=== PATIENT | female | born 1985 | race Caucasian/White ===

== ENCOUNTER 2016-10-15 11:11 | Emergency (ER) | payer MEDICAID ==
--- NOTE | 2016-10-15 12:17 | EDM.PDOC ---
ED HPI Trauma - General Chief Complaint: Upper Extremity Injury/Pain Stated Complaint: RIGHT SHOULDER PAIN Time Seen by Provider: 10/15/16 11:43 Source: Reports: Patient History Limitations: Reports: No limitations - History of Present Illness INITIAL COMMENTS - FREE TEXT/NARRATIVE: The patient was walking her large pit bull/rotwiller cross dog. The dog saw a cat and went after it and jerked her to the ground. She landed on her right side and hurt her shoulder and neck. She denies any other injuries. Occurred When: this morning Occurred Where: home Method of Injury: fall Severity: severe Pain/Injury Location: Reports: neck, upper extremity, right (shoulder) Consciousness: Reports: no loss of consciousness Associated Symptoms: Reports: no other symptoms Allergies/ADRs: Allergies adhesive Allergy (Verified 10/15/16 11:24) Blisters fish derived Allergy (Verified 10/15/16 11:24) Cannot Remember morphine Allergy (Verified 10/15/16 11:24) Shortness of Breath promethazine HCl [From Phenergan] Allergy (Verified 10/15/16 11:24) Hallucinations Home Medications: Ambulatory Orders Cyanocobalamin (Vitamin B-12) [B-12] 1,000 mcg PO DAILY 12/23/15 [Confirmed ] Cyclobenzaprine [Flexeril] 10 mg PO TID PRN #20 tablet 10/15/16 Hydrocodone/Acetaminophen [Hydrocodon-Acetaminophen 5-325] 1 - 2 each PO Q6HR PRN #20 tablet 10/15/16 Past Medical History HEENT History: Reports: Impaired vision Other HEENT History: Wears glasses Gastrointestinal History: Reports: None Genitourinary History: Reports: Renal calculus 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: Other OB/BYN History: tubal ligation Musculoskeletal History: Reports: Back pain, chronic, Other (see below) Other Musculoskeletal History: Scholiosis Neurological History: Reports: Migraines Other Neuro History: Scoliosis Psychiatric History: Reports: ADHD, Anxiety Hematologic History: Reports: B12 deficiency - Infectious Disease History Infectious Disease History: Reports: Chicken pox, Shingles - Past Surgical History HEENT Surgical History: Reports: Adenoidectomy, Myringotomy w tube(s), Tonsillectomy GI Surgical History: Reports: Cholecystectomy Female Surgical History: Reports: section, Tubal ligation Social & Family History - Family History Family Medical History: Noncontributory - Tobacco Use Smoking Status *Q: Current Every Day Smoker Years of Tobacco use: 11 Packs/Tins Daily: 0 Used Tobacco, but Quit: No Month Tobacco Last Used: jul 2015 Second Hand Smoke Exposure: No - Caffeine Use Caffeine Use: Reports: None - Alcohol Use Days Per Week of Alcohol Use: 0 - Recreational Drug Use Recreational Drug Use: No - Living Situation & Occupation Living situation: Reports: , with significant other (Boyfriend), with family (3 kids) 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[employer]) Review of Systems - Review of Systems Review Of Systems: See Below Constitutional: Reports: no symptoms Ears: Reports: no symptoms Nose: Reports: no symptoms Mouth/Throat: Reports: no symptoms Respiratory: Reports: No Symptoms Cardiovascular: Reports: no symptoms GI/Abdominal: Reports: No symptoms Musculoskeletal: Reports: neck pain, shoulder pain Trauma Exam - Physical Exam Exam: See Below Exam Limited By: No limitations General Appearance: Reports: alert, no apparent distress Head: Reports: atraumatic, normocephalic Ears: Reports: normal external exam Nose: Reports: normal inspection Throat/Mouth: Reports: Normal inspection Neck: Reports: other (Pain upon palpation to the right neck) Respiratory Exam: Reports: no respiratory distress, lungs clear, normal breath sounds Cardiovascular: Reports: regular rate, rhythm, no edema, no murmur GI/Abdominal: Reports: soft, non tender, no organomegaly Back: Reports: normal inspection Extremities: Reports: other (Pain upon palpation to the right lateral shoulder with good sensatin and pulses distally) Course - Vital Signs Last Recorded V/S: Last Vital Signs Temp Pulse 88 10/15/16 11:18 Resp 20 10/15/16 11:18 BP 129/83 10/15/16 11:18 Pulse Ox 98 10/15/16 11:18 - Orders/Labs/Meds Orders: Active Orders 24 hr Category Date Time Status Cervical Spine 2V or 3V [CR] Stat Exams 10/15/16 11:49 Taken Shoulder Comp Rt [CR] Stat Exams 10/15/16 11:48 Taken - Re-Assessments/Exams Free Text/Narrative Re-Assessment/Exam: 10/15/16 12:16 The x-ray of her cervical spine and shoulder look good. I will get her on a muscle relaxer and something stronger for pain. Departure - Departure Time of Disposition: 12:20 Disposition: Home, Self-Care 01 Condition: good Clinical Impression: Fall Qualifiers: Encounter type: initial encounter Qualified Code(s): W19.XXXA - Unspecified fall, initial encounter Cervical strain Qualifiers: Encounter type: initial encounter Qualified Code(s): S16.1XXA - Strain of muscle, fascia and tendon at neck level, initial encounter Shoulder contusion Qualifiers: Encounter type: initial encounter Laterality: right Qualified Code(s): S40.011A - Contusion of right shoulder, initial encounter Prescriptions: Hydrocodone/Acetaminophen [Hydrocodon-Acetaminophen 5-325] 1 - 2 each PO Q6HR PRN #20 tablet PRN Reason: Pain Cyclobenzaprine [Flexeril] 10 mg PO TID PRN #20 tablet PRN Reason: Pain Referrals: Neetu Flores, DATABASE SOFTWARE TECHNICIAN [Primary Care Provider] - 1 Week Forms: ED Department Discharge Additional Instructions: Ice your neck and shoulder for 15 minutes every other hour while awake for 2 days. Do not lift anything heavy for a few days. Please return if you are worse. - My Orders Last 24 Hours: My Active Orders 10/15/16 11:48 Shoulder Comp Rt [CR] Stat 10/15/16 11:49 Cervical Spine 2V or 3V [CR] Stat - Assessment/Plan Last 24 Hours: My Active Orders 10/15/16 11:48 Shoulder Comp Rt [CR] Stat 10/15/16 11:49 Cervical Spine 2V or 3V [CR] Stat
[2016-10-15 13:00] VITALS: BP 106/82
--- NOTE | 2016-10-16 07:26 | CR ---
Cervical spine: AP, lateral, odontoid and swimmer's views of the cervical spine were obtained. Comparison: No previous cervical imaging. Scoliosis is present. Vertebral body heights and disc spaces appear maintained. No discrete fracture or subluxation is appreciated. Impression: 1. Scoliosis. Nothing acute is appreciated on four-view cervical spine exam. Diagnostic code #2
--- NOTE | 2016-10-16 10:02 | CR ---
Right shoulder: Four views of the right shoulder were obtained. Comparison: No previous study. Glenohumeral joint and acromioclavicular joint are unremarkable. Scoliosis is noted within the spine. No acute fracture or other abnormality is seen. Impression: 1. Scoliosis within the spine. Right shoulder study is otherwise unremarkable. Diagnostic code #2
== END 2016-10-15 12:55 | disposition home or self-care (01) ==
LOC: JD.ED 11:11
DX: S16.1XXA Strain of muscle, fascia and tendon at neck level, initial encounter (principal); S40.011A Contusion of right shoulder, initial encounter; W19.XXXA Unspecified fall, initial encounter; Z88.8 Allergy status to other drugs, medicaments and biological substances; Z88.6 Allergy status to analgesic agent; Z91.048 Other nonmedicinal substance allergy status; F17.200 Nicotine dependence, unspecified, uncomplicated
CPT/HCPCS: 72040; 72040-26; 73030-26-RT; 73030-RT; 99283

== ENCOUNTER 2017-02-04 12:57 | Emergency (ER) | payer MEDICAID ==
--- NOTE | 2017-02-04 14:27 | EDM.PDOC ---
ED HPI GENERAL MEDICAL PROBLEM - General Chief Complaint: Lower Extremity Injury/Pain Stated Complaint: RIGHT HIP PAIN Time Seen by Provider: 02/04/17 14:14 Source of Information: Reports: Patient History Limitations: Reports: No Limitations - History of Present Illness INITIAL COMMENTS - FREE TEXT/NARRATIVE: Patient is a 31-year-old female who presents to the ED complaining of right lower back pain. This started approximately one week ago and has progressively gotten worse over the course of the week. States the pain is increased with palpation, standing straight up, and laying flat. She has been forced to sleep in a recliner due to the pain. She notes she's been on her feet more recently while at work. 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 She discontinued wearing these with no relief with current symptoms. 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 She has no history of recent trauma. She has tried ice packs, ibuprofen, and heating pads with minimal relief. She has no prior injury to the affected area. Pain does radiate up the right side of her back with lifting a tray, standing straight up, and laying flat. States there is some muscle tension present. She does have a history kidney stones to which she states symptomatology currently is way different than previous kidney stone episodes. She has no pain with urination or hematuria present. There is no fever/chills, nausea/vomiting, chest pain, shortness of breath, abdominal pain, incontinence to urine or stool, saddle anesthesia, or any additional complaints. Treatments LIBRARY PAGE: Reports: Cold Therapy, NSAIDS Right Hip Pain Score (Numeric/FACES): 6 - Related Data Allergies Allergy/AdvReac Type Severity Reaction Status Date / Time adhesive Allergy Blisters Verified 02/04/17 13:26 fish derived Allergy Cannot Verified 02/04/17 13:26 Remember morphine Allergy Shortness Verified 02/04/17 13:26 of Breath Home Meds: Home Meds Cyanocobalamin (Vitamin B-12) [B-12] 1,000 mcg PO DAILY 12/23/15 [History] Orphenadrine [Norflex] 100 mg PO BID PRN #10 tab.er 02/04/17 [Rx] Past Medical History HEENT History: Reports: Impaired Vision Other HEENT History: wears eyeglasses Gastrointestinal History: Reports: GERD, Other (See Below) Other Gastrointestinal History: during . 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 Neurological History: Reports: Migraines Other Neuro History: Scoliosis--causes migraines, chronic neck pain. Psychiatric History: Reports: ADHD, Anxiety Hematologic History: Reports: B12 Deficiency - Infectious Disease History Infectious Disease History: Reports: Chicken Pox, Shingles - Past Surgical History HEENT Surgical History: Reports: Adenoidectomy, Myringotomy w Tube(s), Tonsillectomy GI Surgical History: Reports: Cholecystectomy Female Surgical History: Reports: Section, Tubal Ligation Social & Family History - Family History Family Medical History: Noncontributory - Tobacco Use Smoking Status *Q: Current Some Day Smoker Years of Tobacco use: 10 Packs/Tins Daily: 0.5 Used Tobacco, but Quit: No Month Tobacco Last Used: jul 2015 Second Hand Smoke Exposure: No - Caffeine Use Caffeine Use: Reports: None - Alcohol Use Days Per Week of Alcohol Use: 0 - Recreational Drug Use Recreational Drug Use: No - Living Situation & Occupation Living situation: Reports: , with Significant Other, with Family Occupation: Student Review of Systems - Review of Systems Review Of Systems: ROS reveals no pertinent complaints other than HPI. ED EXAM, GENERAL - Physical Exam Exam: See Below Exam Limited By: No Limitations General Appearance: Alert, WD/WN, No Apparent Distress Ears: Hearing Grossly Normal Nose: Normal Inspection Throat/Mouth: Normal Voice, No Airway Compromise Neck: Normal Inspection, Supple Respiratory/Chest: No Respiratory Distress, Lungs Clear, Normal Breath Sounds, No Accessory Muscle Use Cardiovascular: Normal Peripheral Pulses, Regular Rate, Rhythm, No Murmur Peripheral Pulses: 2+: Radial (L) GI/Abdominal: Normal Bowel Sounds, Soft, Non-Tender, No Organomegaly, No Distention Back Exam: Normal Inspection, Decreased Range of Motion, Other (Pain with palpation of the right lower back and SI joint. No muscle spasms present. Pain is localized with no radiation. Decreased range of motion noted secondary to pain. No sensory/motor deficits noted distally.). No: Paraspinal Tenderness, Vertebral Tenderness Extremities: Normal Inspection, Normal Range of Motion, Non-Tender, No Pedal Edema, Normal Capillary Refill Neurological: Alert, Oriented, CN II-XII Intact, Normal Cognition, No Motor/ Sensory Deficits Psychiatric: Normal Affect, Normal Mood Skin Exam: Warm, Dry, Intact, Normal Color Course - Vital Signs Last Recorded V/S: Last Vital Signs Temp 98.3 F 02/04/17 13:25 Pulse 102 H 02/04/17 13:25 Resp 16 02/04/17 13:25 BP 125/79 02/04/17 13:25 Pulse Ox 99 02/04/17 13:25 - Re-Assessments/Exams Free Text/Narrative Re-Assessment/Exam: It appears on physical examination this is more muscle skeletal in nature. 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 Pain is reproducible with palpation. It is involving the SI joint, lower back, and upper back depending on the movements. She has a history of kidney stones in the past to which current symptoms are way different than previous episodes. Treatment at this point will be symptomatic treatment including: Refrain from any activities that cause worsening pain, ibuprofen and Tylenol in alternating fashion for pain. Norflex for muscle relaxation. Ice and heat in alternating fashion. Follow-up with primary care provider as needed. Discharge instructions as documented. Departure - Departure Time of Disposition: 14:27 Disposition: Home, Self-Care 01 Condition: Good Clinical Impression: Sacroiliac joint pain Lower back pain Qualifiers: Chronicity: acute Back pain laterality: right Sciatica presence: without sciatica Qualified Code(s): M54.5 - Low back pain - Discharge Information Prescriptions: Orphenadrine [Norflex] 100 mg PO BID PRN #10 tab.er PRN Reason: Pain Instructions: Sacroiliac Joint Dysfunction, Back Pain, Adult, [id number] Referrals: Neetu Flores SALES RECRUITMENT SPECIALIST [Primary Care Provider] - Forms: ED Department Discharge Additional Instructions: Refrain from any activities that cause worsening pain. Take ibuprofen and Tylenol in alternating fashion for pain. Utilize ice and warm compresses and alternate fashion with gentle massage. Take the Norflex as prescribed. No driving while taking this medication. Follow-up with your primary care provider in 3-5 days for reevaluation and treatment. Return to ED as needed for any new or worsening symptoms.
== END 2017-02-04 15:00 | disposition home or self-care (01) ==
LOC: JD.ED 12:57
CPT/HCPCS: 99283

== ENCOUNTER 2017-02-18 19:15 | Emergency (ER) | payer MEDICAID ==
[2017-02-18 19:24] VITALS: BP 122/75
[2017-02-18] MEDS ORDERED: Ondansetron 4 MG/2 ML SDV IVPUSH ONE (19:32)
[2017-02-18] MEDS ORDERED: diphenhydrAMINE 50 MG/ML SDV IVPUSH ONE (19:32)
[2017-02-18] MEDS ORDERED: Lactated Ringers 1,000 ML IV ONE (19:32)
--- NOTE | 2017-02-18 19:32 | EDM.PDOC ---
ED HPI GENERAL MEDICAL PROBLEM - General Chief Complaint: Headache Stated Complaint: MIGRANE Time Seen by Provider: 02/18/17 19:24 - History of Present Illness INITIAL COMMENTS - FREE TEXT/NARRATIVE: 31-year-old female presents emergency room with a headache. This headache started early today has progressively gotten worse. Patient has frequent headaches not often this bad to get this bad to her 3 times a month. She was not able to control this with Motrin. Her last dose of Motrin was around noon today. Patient has muscle tension headaches as well and her worse headaches or when the muscle tension headaches bindup with the migraines according to the patient. Patient denies any fevers or chills she has some photophobia but no eye pain her neck pain is a chronic problem. This is a typical headache for her Headache Pain Score (Numeric/FACES): 9 - Related Data Allergies Allergy/AdvReac Type Severity Reaction Status Date / Time adhesive Allergy Blisters Verified 02/18/17 19:24 fish derived Allergy Cannot Verified 02/18/17 19:24 Remember morphine Allergy Shortness Verified 02/18/17 19:24 of Breath Home Meds: Home Meds Cyanocobalamin (Vitamin B-12) [B-12] 1,000 mcg PO DAILY 12/23/15 [History] Cyclobenzaprine [Flexeril] 10 mg PO DAILY PRN 02/18/17 [History] Past Medical History HEENT History: Reports: Impaired Vision Other HEENT History: wears eyeglasses Gastrointestinal History: Reports: GERD, Other (See Below) Other Gastrointestinal History: during . 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 Neurological History: Reports: Migraines Other Neuro History: Scoliosis--causes migraines, chronic neck pain. Psychiatric History: Reports: ADHD, Anxiety Hematologic History: Reports: B12 Deficiency - Infectious Disease History Infectious Disease History: Reports: Chicken Pox, Shingles - Past Surgical History HEENT Surgical History: Reports: Adenoidectomy, Myringotomy w Tube(s), Tonsillectomy GI Surgical History: Reports: Cholecystectomy Female Surgical History: Reports: Section, Tubal Ligation Social & Family History - Family History Family Medical History: Noncontributory - Tobacco Use Smoking Status *Q: Current Some Day Smoker Years of Tobacco use: 10 Packs/Tins Daily: 0.5 Used Tobacco, but Quit: No Month Tobacco Last Used: jul 2015 Second Hand Smoke Exposure: No - Caffeine Use Caffeine Use: Reports: None - Alcohol Use Days Per Week of Alcohol Use: 0 - Recreational Drug Use Recreational Drug Use: No - Living Situation & Occupation Living situation: Reports: , with Significant Other, with Family Occupation: Student ED ROS GENERAL - Review of Systems Review Of Systems: See Below Constitutional: Reports: No Symptoms. Denies: Fever, Chills HEENT: Reports: Other (Photophobia). Denies: Dental Pain, Ear Pain, Eye Pain, Nosebleed, Throat Pain, Vertigo, Vision Change Respiratory: Reports: No Symptoms Cardiovascular: Reports: No Symptoms Endocrine: Reports: No Symptoms : Reports: No Symptoms, Other (She has had a tubal ligation and has an IUD in place) Skin: Reports: No Symptoms Neurological: Reports: Headache. Denies: Confusion, Dizziness, Numbness, Pre- Existing Deficit, Trouble Speaking, Difficulty Walking Psychiatric: Reports: No Symptoms - Physical Exam Exam: See Below Exam Limited By: No Limitations General Appearance: Alert, No Apparent Distress Eye Exam: Bilateral Eye: EOMI, Normal Inspection, PERRL Ears: Normal External Exam, Normal Canal, Hearing Grossly Normal, Normal TMs Nose: Normal Inspection, Normal Mucosa, No Blood Throat/Mouth: Normal Inspection, Normal Lips, Normal Teeth, Normal Gums, Normal Oropharynx, Normal Voice, No Airway Compromise Head Exam: Atraumatic, Normocephalic Neck: Normal Inspection, Supple, Non-Tender, Full Range of Motion. No: Lymphadenopathy (L), Lymphadenopathy (R) Respiratory/Chest: No Respiratory Distress, Lungs Clear, Normal Breath Sounds Cardiovascular: Regular Rate, Rhythm, No Edema, No Murmur Neuro Exam (Abbreviated): Other (Cranial nerves II through XII all muscle groups in upper and lower extremities recall appropriate bilaterally deep tendon reflexes are equal and appropriate at the brachial radialis. Cerebellar testing is entirely within normal limits) Course - Vital Signs Last Recorded V/S: Last Vital Signs Temp 36.8 C 02/18/17 19:21 Pulse 94 02/18/17 19:21 Resp 19 02/18/17 19:21 BP 122/75 02/18/17 19:21 Pulse Ox 98 02/18/17 19:21 - Orders/Labs/Meds Meds: Medications Discontinued Medications Generic Name Dose Route Start Last Admin Trade Name Mariann PRN Reason Stop Dose Admin Diphenhydramine HCl 50 mg 02/18/17 19:32 02/18/17 19:42 Benadryl IVPUSH 02/18/17 19:33 50 mg ONETIME ONE Administration Haloperidol Lactate 2.5 mg 02/18/17 20:28 02/18/17 20:33 Haldol IVPUSH 02/18/17 20:29 2.5 mg ONETIME ONE Administration Lactated Ringer's 1,000 mls @ 999 mls/hr 02/18/17 19:32 02/18/17 19:41 Ringers, Lactated IV 02/18/17 20:32 999 mls/hr .BOLUS ONE Administration Ketorolac Tromethamine 15 mg 02/18/17 19:35 02/18/17 19:42 Toradol IVPUSH 02/18/17 19:36 15 mg ONETIME ONE Administration Ondansetron HCl 4 mg 02/18/17 19:32 02/18/17 19:41 Zofran IVPUSH 02/18/17 19:33 4 mg ONETIME ONE Administration - Re-Assessments/Exams Free Text/Narrative Re-Assessment/Exam: 02/18/17 19:45 Patient has a normal neurologic examination we'll proceed with a liter of LR Zofran 4 mg Benadryl 50 mg and Toradol 15 mg 02/18/17 21:24 Patient was initially treated with IV fluids Benadryl Zofran her pain was down to about a 6 with this this was followed up at 2.5 mg of Haldol her pain is down less than a 3 she would like to go home and get some rest Departure - Departure Time of Disposition: 21:24 Disposition: Home, Self-Care 01 Clinical Impression: Tension-type headache, Migraine - Discharge Information Forms: ED Department Discharge Additional Instructions: Return to the emergency room with any questions problems worsening symptoms. Discharged home and get some rest. Do not eat anything have just mostly liquids if needed then go to bed. Follow-up with your regular physician as needed
[2017-02-18] MEDS ORDERED: Ketorolac 15 MG/ML SDV IVPUSH ONE (19:35)
[2017-02-18] MEDS ORDERED: Haloperidol Lactate 5 MG/ML SDV IVPUSH ONE (20:28)
== END 2017-02-18 21:44 | disposition home or self-care (01) ==
LOC: JD.ED 19:15
DX: G44.209 Tension-type headache, unspecified, not intractable (principal); G43.909 Migraine, unspecified, not intractable, without status migrainosus; K21.9 Gastro-esophageal reflux disease without esophagitis; F41.9 Anxiety disorder, unspecified; F17.210 Nicotine dependence, cigarettes, uncomplicated; Z98.51 Tubal ligation status; Z90.49 Acquired absence of other specified parts of digestive tract; Z98.890 Other specified postprocedural states; Z96.22 Myringotomy tube(s) status; Z87.440 Personal history of urinary (tract) infections; Z87.442 Personal history of urinary calculi; Z79.899 Other long term (current) drug therapy; Z88.5 Allergy status to narcotic agent; Z91.013 Allergy to seafood
CPT/HCPCS: 96361; 96374; 96375; 99284; J1200; J1630; J1885; J2405; J7120

== ENCOUNTER 2017-06-13 19:05 | Emergency (ER) | payer MEDICAID, OTHER ==
[2017-06-13 19:21] VITALS: BP 111/74
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
--- NOTE | 2017-06-16 16:01 | CR ---
Right elbow: Four views of the right elbow were obtained. Comparison: No prior elbow exam. Small supracondylar process is again identified. Joint spaces within the elbow are maintained. No joint effusion is seen. No fracture or other bony abnormality is identified. Impression: 1. Small supracondylar process. 2. Right elbow study is otherwise unremarkable. Diagnostic code #2
--- NOTE | 2017-06-16 16:01 | CR ---
Right forearm: Two views of the right forearm were obtained. Comparison: No prior study. Soft tissue swelling is identified. No fracture or other bony abnormality is seen. Impression: 1. Soft tissue swelling. No acute bony abnormality is seen. Diagnostic code #2
--- NOTE | 2017-06-16 16:01 | CR ---
Right humerus: Two views of the right humerus were obtained. Comparison: Prior right shoulder study partially showing the humerus dated 10/15/16. No fracture or other bony abnormality is seen. Incidental note of small supracondylar process. Impression: 1. Incidental finding. Nothing acute is seen on two-view right humerus exam. Diagnostic code #2
== END 2017-06-13 21:50 | disposition home or self-care (01) ==
LOC: JD.ED 19:05
DX: S50.12XA Contusion of left forearm, initial encounter (principal); S59.902A Unspecified injury of left elbow, initial encounter; F17.210 Nicotine dependence, cigarettes, uncomplicated; V89.2XXA Person injured in unspecified motor-vehicle accident, traffic, initial encounter
CPT/HCPCS: 73060-26-RT; 73060-RT; 73080-26-RT; 73080-RT; 73090-26-RT; 73090-RT; 99283; 99284

== ENCOUNTER 2019-03-11 11:00 | Emergency (ER) | payer SELFPAY ==
[2019-03-11 11:09] VITALS: BP 133/83
[2019-03-11] MEDS ORDERED: Lidocaine 1% 10 ML MDV INJECT ONE (11:44)
--- NOTE | 2019-03-11 13:59 | EDM.PDOC ---
ED HPI GENERAL MEDICAL PROBLEM - General Chief Complaint: Laceration Stated Complaint: LEFT HAND LAC Time Seen by Provider: 03/11/19 11:07 Source of Information: Reports: Patient History Limitations: Reports: No Limitations - History of Present Illness INITIAL COMMENTS - FREE TEXT/NARRATIVE: The patient presents with a left finger lacerations. She was cutting up some onions and she cut her left middle finger. She is right handed and her tetanus is up to date. Onset: Today Duration: Minutes: Location: Reports: Upper Extremity, Left (middle finger) Quality: Reports: Sharp Severity: Mild Left Finger-Middle Pain Score (Numeric/FACES): 10 - Related Data Allergies Allergy/AdvReac Type Severity Reaction Status Date / Time adhesive Allergy Blisters Verified 03/11/19 11:08 fish derived Allergy Cannot Verified 03/11/19 11:08 Remember morphine Allergy Shortness Verified 03/11/19 11:08 of Breath Home Meds: Home Meds Cyanocobalamin (Vitamin B-12) [B-12] 1,000 mcg PO DAILY 12/23/15 [History] Past Medical History HEENT History: Reports: Impaired Vision Other HEENT History: wears eyeglasses Gastrointestinal History: Reports: GERD, Other (See Below) Other Gastrointestinal History: during . 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 Neurological History: Reports: Migraines Other Neuro History: Scoliosis--causes migraines, chronic neck pain. Psychiatric History: Reports: ADHD, Anxiety Hematologic History: Reports: B12 Deficiency - Infectious Disease History Infectious Disease History: Reports: Chicken Pox, Shingles - Past Surgical History HEENT Surgical History: Reports: Adenoidectomy, Myringotomy w Tube(s), Tonsillectomy GI Surgical History: Reports: Cholecystectomy Female Surgical History: Reports: Section, Tubal Ligation Social & Family History - Family History Family Medical History: Noncontributory - Tobacco Use Smoking Status *Q: Current Every Day Smoker Years of Tobacco use: 10 Packs/Tins Daily: 0.5 - Caffeine Use Caffeine Use: Reports: Soda - Recreational Drug Use Recreational Drug Use: No - Living Situation & Occupation Living situation: Reports: , with Significant Other, with Family Occupation: Student ED ROS GENERAL - Review of Systems Review Of Systems: See Below Constitutional: Reports: No Symptoms HEENT: Reports: No Symptoms Respiratory: Reports: No Symptoms Cardiovascular: Reports: No Symptoms Endocrine: Reports: No Symptoms GI/Abdominal: Reports: No Symptoms : Reports: No Symptoms Musculoskeletal: Reports: Other (Laceration to the left middle finger) ED EXAM, SKIN/RASH Exam: See Below Exam Limited By: No Limitations General Appearance: Alert, No Apparent Distress Ears: Normal External Exam Nose: Normal Inspection Head: Atraumatic, Normocephalic Neck: Normal Inspection Respiratory/Chest: No Respiratory Distress Extremities: Other (0.5cm laceration to the left middle finger with good sensation and movement) ED SKIN PROCEDURES - Laceration/Wound Repair Left Digit - 3rd (Middle) Appearance: Subcutaneous, Other (Through the nail) Distal NVT: Neuro & Vascular Intact, No Tendon Injury Anesthetic Type: Digital Local Anesthesia - Lidocaine (Xylocaine): 1% Plain Skin Prep: Saline Exploration/Debridement/Repair: Wound Explored, In a Bloodless Field, Explored to Base Closed with: Sutures Lac/Wound length In cm: 0.5 Suture Size: 4-0 # of Sutures: 1 Suture Type: Nylon, Interrupted, Simple Tetanus Status Addressed: Yes Complications: No Course - Vital Signs Last Recorded V/S: Last Vital Signs Temp 97.8 F 03/11/19 11:06 Pulse 94 03/11/19 11:06 Resp 18 03/11/19 11:06 BP 133/83 03/11/19 11:06 Pulse Ox 98 03/11/19 11:06 - Orders/Labs/Meds Meds: Medications Discontinued Medications Generic Name Dose Route Start Last Admin Trade Name Mariann PRN Reason Stop Dose Admin Lidocaine HCl 10 ml 03/11/19 11:44 03/11/19 12:44 Xylocaine 1% INJECT 03/11/19 11:45 10 ml ONETIME ONE Administration - Re-Assessments/Exams Free Text/Narrative Re-Assessment/Exam: 03/11/19 14:04 I sutured the wound. Departure - Departure Time of Disposition: 14:05 Disposition: Home, Self-Care 01 Condition: Good Clinical Impression: Laceration of left index finger Qualifiers: Encounter type: initial encounter Damage to nail status: without damage Foreign body presence: without foreign body Qualified Code(s): S61.211A - Laceration without foreign body of left index finger without damage to nail, initial encounter - Discharge Information *PRESCRIPTION DRUG MONITORING PROGRAM REVIEWED*: No *COPY OF PRESCRIPTION DRUG MONITORING REPORT IN PATIENT VITALY: No Instructions: Laceration Care, Adult Referrals: Cristofer Dunn MD [Primary Care Provider] - 1 Week Forms: ED Department Discharge Additional Instructions: Soak your finger in warm soapy water 2 times per day and apply antibiotics after. Have the sutures removed in 1 week. Please return if you have any signs of infection such as redness, swelling, pain or drainage. You may need oral antibiotics at that time.
== END 2019-03-11 14:15 | disposition home or self-care (01) ==
LOC: JD.ED 11:00
DX: S61.213A Laceration without foreign body of left middle finger without damage to nail, initial encounter (principal); F17.210 Nicotine dependence, cigarettes, uncomplicated; Z88.5 Allergy status to narcotic agent; Z91.013 Allergy to seafood; W26.8XXA Contact with other sharp object(s), not elsewhere classified, initial encounter
CPT/HCPCS: 12001; 99282; J2001

== ENCOUNTER 2019-03-20 17:23 | Emergency (ER) | payer SELFPAY | END 2019-03-20 17:50 | LOC: JD.ED 17:23 | DX: S61.211D Laceration without foreign body of left index finger without damage to nail, subsequent encounter (principal); W26.9XXD Contact with unspecified sharp object(s), subsequent encounter ==

== ENCOUNTER 2019-12-08 17:55 | Emergency (ER) | payer MEDICAID, OTHER ==
[2019-12-08 18:39] VITALS: BP 115/67; PULSE 91
[2019-12-08] MEDS ORDERED: HYDROmorphone 0.5 MG/0.5 ML Syringe IVPUSH ONE (19:08)
[2019-12-08] MEDS ORDERED: Metoclopramide 10 MG/2 ML SDV IVPUSH ONE (19:08)
--- NOTE | 2019-12-08 19:13 | EDM.PDOC ---
ED HPI GENERAL MEDICAL PROBLEM - General Chief Complaint: Genitourinary Problem Stated Complaint: ABD AND BACK PAIN Time Seen by Provider: 12/08/19 19:03 Source of Information: Reports: Patient History Limitations: Reports: No Limitations - History of Present Illness INITIAL COMMENTS - FREE TEXT/NARRATIVE: 34-year-old female presents to the ED with acute onset of left flank pain last evening bench then seemed to clear up after a few hours. Pain was present most of today but became much more severe around 1400 hrs. today and started to move into the left upper abdomen. Associated constant feeling of need to void. No diarrhea. Associated nausea without vomiting. She has not seen any blood in her urine. Patient does not have menstrual cycles as she has an IUD in place. She is also had previous tubal ligation. She has a past history of kidney stones. Her father also has stones. Last kidney stone for her was about a year and a half ago. Pain is rated as 6-7 out of 10 Onset: Sudden Onset Date: 12/07/19 Onset Time: 21:30 Duration: Hour(s):, Constant, Getting Worse Location: Reports: Back, Radiates to (Left flank pain radiating to the left upper abdomen. Left upper abdomen) Quality: Reports: Ache, Throbbing Severity: Moderate (6710) Worsens with: Reports: None Context: Reports: Other (Continuous occurrence). 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: Acetaminophen, NSAIDS (Motrin with no relief) Left Abdomen Pain Score (Numeric/FACES): 5 - Related Data Allergies Allergy/AdvReac Type Severity Reaction Status Date / Time adhesive Allergy Severe Blisters Verified 12/08/19 18:36 fish derived Allergy Severe Cannot Verified 12/08/19 18:36 Remember morphine Allergy Severe Shortness Verified 12/08/19 18:36 of Breath Home Meds: Home Meds Cyanocobalamin (Vitamin B-12) [B-12] 1,000 mcg PO DAILY 12/23/15 [History] Ondansetron [Zofran] 4 mg BUCCAL Q6H PRN #6 tab 12/08/19 [Rx] oxyCODONE HCl/Acetaminophen [Percocet 5-325 mg Tablet] 1 - 2 each PO Q4H PRN # 12 tablet 12/08/19 [Rx] Past Medical History HEENT History: Reports: Impaired Vision Other HEENT History: wears eyeglasses Gastrointestinal History: Reports: GERD, Other (See Below) Other Gastrointestinal History: during . 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 Neurological History: Reports: Migraines Other Neuro History: Scoliosis--causes migraines, chronic neck pain. Psychiatric History: Reports: ADHD, Anxiety Hematologic History: Reports: B12 Deficiency - Infectious Disease History Infectious Disease History: Reports: Chicken Pox, Shingles - Past Surgical History HEENT Surgical History: Reports: Adenoidectomy, Myringotomy w Tube(s), Tonsillectomy GI Surgical History: Reports: Cholecystectomy (Laparoscopic) Female Surgical History: Reports: Section, Tubal Ligation Social & Family History - Family History Family Medical History: Noncontributory - Tobacco Use Years of Tobacco use: 13 Packs/Tins Daily: 0.5 - Caffeine Use Caffeine Use: Reports: Soda - Recreational Drug Use Recreational Drug Use: No - Living Situation & Occupation Living situation: Reports: , with Significant Other, with Family Occupation: Student ED ROS GENERAL - Review of Systems Review Of Systems: See Below Constitutional: Reports: Decreased Appetite. Denies: Fever, Chills, Malaise, Weakness, Fatigue, Weight Loss HEENT: Reports: No Symptoms Respiratory: Reports: No Symptoms Cardiovascular: Reports: No Symptoms Endocrine: Reports: No Symptoms GI/Abdominal: Reports: Abdominal Pain, Decreased Appetite (Left upper mid abdominal pain rating slightly down towards the left groin.), Nausea. Denies: Vomiting : Reports: Frequency, Other (No obvious hematuria) Musculoskeletal: Reports: Back Pain Neurological: Reports: No Symptoms (Left flank and low back pain) Psychiatric: Reports: No Symptoms Hematologic/Lymphatic: Reports: No Symptoms Immunologic: Reports: No Symptoms ED EXAM, RENAL/ - Physical Exam Exam: See Below Exam Limited By: No Limitations General Appearance: Alert, WD/WN, Mild Distress, Other (Temperature is 36.4 pulse is 91 and sinus respiratory 16 with O2 sats of 99%. BP 115/67) Eye Exam: Bilateral Eye: Normal Inspection (No blepharal pallor or scleral icterus.), PERRL Throat/Mouth: Normal Inspection, Normal Lips, Normal Oropharynx Head: Atraumatic, Normocephalic Neck: Normal Inspection, Supple, Non-Tender, Full Range of Motion. No: Lymphadenopathy (L), Lymphadenopathy (R) Respiratory/Chest: No Respiratory Distress, Lungs Clear, Normal Breath Sounds, No Accessory Muscle Use Cardiovascular: Normal Peripheral Pulses, Regular Rate, Rhythm, No Edema, No Gallop, No Murmur, No Rub GI/Abdominal: Soft (Bowel sounds are fairly hyperactive in all 4 quadrants.), Non-Tender, No Organomegaly, No Abnormal Bruit, No Mass, Pelvis Stable, Abnormal Bowel Sounds. No: Guarding, Rigid, Rebound Back Exam: CVA Tenderness (L). No: CVA Tenderness (R) (Mild left CVA tenderness ) Extremities: Normal Inspection, Normal Range of Motion, Non-Tender, No Pedal Edema Neurological: Alert, Oriented, CN II-XII Intact, Normal Cognition Psychiatric: Normal Affect, Normal Mood Skin Exam: Warm, Dry, Intact, Normal Color, No Rash Course - Vital Signs Last Recorded V/S: Last Vital Signs Temp 36.4 C 12/08/19 18:36 Pulse 91 12/08/19 18:36 Resp 16 12/08/19 18:36 BP 115/67 12/08/19 18:36 Pulse Ox 99 12/08/19 18:36 - Orders/Labs/Meds Orders: Active Orders 24 hr Category Date Time Status Ketorolac [Toradol] Med 12/08/19 19:15 Active 30 mg IVPUSH ONETIME Sodium Chloride 0.9% [Normal Saline] 1,000 ml Med 12/08/19 19:15 Active IV ASDIRECTED Medication Orders Sodium Chloride (Normal Saline) 1,000 mls @ 150 mls/hr IV ASDIRECTED JES Last Admin: 12/08/19 19:33 Dose: 150 mls/hr Ketorolac Tromethamine (Toradol) 30 mg IVPUSH ONETIME JES Last Admin: 12/08/19 19:35 Dose: 30 mg Labs: Laboratory Tests 12/08/19 Range/Units 18:43 Urine Color Yellow (Yellow) Urine Appearance Clear (Clear) Urine pH 7.0 (5.0-8.0) Ur Specific [place] 1.025 (1.005-1.030) Urine Protein Negative (Negative) Urine Glucose (UA) Negative (Negative) Urine Ketones Trace H (Negative) Urine Occult Blood 2+ H (Negative) Urine Nitrite Negative (Negative) Urine Bilirubin Negative (Negative) Urine Urobilinogen 0.2 (0.2-1.0) Ur Leukocyte Esterase Negative (Negative) Urine RBC 30-40 H (0-5) /hpf Urine WBC 0-5 (0-5) /hpf Ur Squamous Epith Cells 5-10 H (0-5) /hpf Urine Bacteria Rare (FEW) /hpf Urine Mucus Not seen (FEW) /hpf Meds: Medications Generic Name Dose Route Start Last Admin Trade Name Freq PRN Reason Stop Dose Admin Sodium Chloride 1,000 mls @ 150 mls/hr 12/08/19 19:15 12/08/19 19:33 Normal Saline IV 150 mls/hr ASDIRECTED JES Administration Ketorolac Tromethamine 30 mg 12/08/19 19:15 12/08/19 19:35 Toradol IVPUSH 30 mg ONETIME JES Administration Discontinued Medications Generic Name Dose Route Start Last Admin Trade Name Freq PRN Reason Stop Dose Admin Hydromorphone HCl 0.5 mg 12/08/19 19:08 12/08/19 19:34 Dilaudid IVPUSH 12/08/19 19:09 0.5 mg ONETIME ONE Administration Metoclopramide HCl 7.5 mg 12/08/19 19:08 12/08/19 19:33 Reglan IVPUSH 12/08/19 19:09 7.5 mg ONETIME ONE Administration - Radiology Interpretation Free Text/Narrative:: 34-year-old female presents to the ED with initially intermittent left flank pain starting last evening which progressed to constant severe pain about 1400 hrs. this afternoon. Associated nausea and constant feeling of need to void. She has a past history of kidney stones with the last stone attack being about a year and a half ago. Urinalysis done by the triage nurse shows 2+ hematuria and 30-40 RBCs per high-power field with no evidence of pyuria. Current pain is 6-7 out of 10. Plan IV normal saline at 150 mils per hour. Given Dilaudid 0.5 mg IV with Reglan 7.5 mg IV and Toradol 30 mg IV for acute pain and nausea relief. CT of the abdomen/pelvis to be performed per renal protocol - Re-Assessments/Exams Free Text/Narrative Re-Assessment/Exam: 12/08/19 20:24 CT of the abdomen and pelvis carried out per renal protocol. Lung bases are clear. She does have a small hiatal hernia. Cardiac silhouette is within normal limits. Liver is here homogeneous without any intraductal dilatation. Gallbladder is absent with matt present in the gallbladder fossa. Pancreas appears to be normal. Both kidneys appear to be within normal limits. The left ureter is mildly dilated and there is a 1 mm stone obstructing the distal one third of the ureter minimally. A 2 mm stone in the upper right kidney. D present in the uterus. Appendix is seen and is normal. No free fluid in the pelvis. No other abnormalities were appreciated on CT exam. 12/08/19 20:43 next discussed with the patient. She has good pain relief with above medications. She will be sent home with a strainer. Percocet tabs 5 325 mg 1 or 2 every 4-6 hour as needed for pain relief x12 tablets. Zofran 4 mg sublingually every 6 hours. Zofran for nausea or vomiting relief x 6. Departure - Departure Time of Disposition: 20:44 Disposition: Home, Self-Care 01 Condition: Fair Clinical Impression: Renal colic on left side - Discharge Information *PRESCRIPTION DRUG MONITORING PROGRAM REVIEWED*: Not Applicable *COPY OF PRESCRIPTION DRUG MONITORING REPORT IN PATIENT VITALY: Not Applicable Prescriptions: Ondansetron [Zofran] 4 mg BUCCAL Q6H PRN #6 tab PRN Reason: nausea or vomiting oxyCODONE HCl/Acetaminophen [Percocet 5-325 mg Tablet] 1 - 2 each PO Q4H PRN # 12 tablet PRN Reason: pain relief. Referrals: Cristofer Dunn MD [Primary Care Provider] - Forms: ED Department Discharge Additional Instructions: AUA sheet in the emergency room today in regards to acute onset of severe left flank pain rating into the left upper abdomen this afternoon. Mild left flank pain starting yesterday. Urinalysis is positive for blood with 30-40 red blood cells per high-power field and no signs of infection. History of kidney stones. T of the abdomen today reveals a 1 mm stone in the lower portion of the left ureter with mild dilatation revealing a mild degree of obstruction. There is also a 2 mm stone embedded within the tissue over the right kidney that might become problematic in the future. No other abnormalities were appreciated on exam. You were treated with intravenous fluids in the ED as well as pain medicine and antinausea medication. Treatment at home is to strain the urine until passage of stone which is only 1 mm neck therefore is going to feel like a small grain of sand. It is likely to pass within the next 48 hours. Pain medication is to be Motrin 6 mg every 6 hours as needed. Percocet tab 5/325 mg with the Percocet every 4-6 hours as needed for pain relief. Zofran 4 mg on the tongue every 6 hours as necessary for nausea relief. Return to the ED if vomiting recurs and you cannot keep down your medication. Or if you develop any fever or chills. Sepsis Event Note - Evaluation Sepsis Screening Result: No Definite Risk - Focused Exam Vital Signs: Vital Signs Temp Pulse Resp BP Pulse Ox 12/08/19 18:36 36.4 C 91 16 115/67 99 Date Exam was Performed: 12/08/19 Time Exam was Performed: 20:38 - My Orders Last 24 Hours: My Active Orders 12/08/19 19:15 Ketorolac [Toradol] 30 mg IVPUSH ONETIME Sodium Chloride 0.9% [Normal Saline] 1,000 ml IV ASDIRECTED - Assessment/Plan Last 24 Hours: My Active Orders 12/08/19 19:15 Ketorolac [Toradol] 30 mg IVPUSH ONETIME Sodium Chloride 0.9% [Normal Saline] 1,000 ml IV ASDIRECTED
[2019-12-08] MEDS ORDERED: Sodium Chloride 0.9% 1,000 ML IV SCH (19:15)
[2019-12-08] MEDS ORDERED: Ketorolac 30 MG/ML SDV IVPUSH SCH (19:15)
--- NOTE | 2019-12-08 20:31 | CT ---
CT abdomen and pelvis Technique: Multiple axial sections were obtained from above the dome of the diaphragm inferiorly through the pubic symphysis. Intravenous and oral contrast was not utilized. Comparison: Prior CT abdomen and pelvis study of 03/09/16. Findings: Right kidney shows a small 2 mm nonobstructing stone within the mid to upper kidney. Ureters show no dilatation or evidence of obstructing ureteral calculus. Visualized lung bases show nothing acute. Noncontrast appearance of the liver and spleen shows no focal abnormality. Surgical clips are seen from prior cholecystectomy. Adrenal glands show no nodule. Pancreas shows no discrete abnormality. Aorta shows no aneurysm. No retroperitoneal adenopathy or mesenteric abnormalities are seen. Appendix is seen which is normal in size. IUD is present within the uterus. No pelvic mass or adenopathy is seen. No free fluid or inflammatory change is appreciated. Bone window settings were reviewed which shows no acute osseous finding. Impression: 1. Small 2 mm nonobstructing calculus within the mid to upper right kidney. No ureteral dilatation or ureteral stone is seen. 2. Nothing acute is appreciated on noncontrast CT study of the abdomen and pelvis. Diagnostic code #2 This report was dictated in MDT
== END 2019-12-08 20:55 | disposition home or self-care (01) ==
LOC: JD.ED 17:55
DX: N20.0 Calculus of kidney (principal); M41.9 Scoliosis, unspecified; F17.210 Nicotine dependence, cigarettes, uncomplicated; Z91.048 Other nonmedicinal substance allergy status; Z88.5 Allergy status to narcotic agent; Z91.013 Allergy to seafood
CPT/HCPCS: 74176; 81001; 96374; 96375; 99284; J1170; J1885; J2765; J7030

== ENCOUNTER 2020-03-27 15:28 | Emergency (ER) | payer MEDICAID ==
[2020-03-27] MEDS ORDERED: Ketorolac 60 MG/2 ML SDV IM ONE (15:54)
[2020-03-27] MEDS ORDERED: Cyclobenzaprine 10 MG Tab PO ONE (15:54)
--- NOTE | 2020-03-27 16:04 | EDM.PDOC ---
ED HPI GENERAL MEDICAL PROBLEM - General Chief Complaint: Upper Extremity Injury/Pain Stated Complaint: RT SHOULDER PAIN Time Seen by Provider: 03/27/20 15:34 Source of Information: Reports: Patient History Limitations: Reports: No Limitations - History of Present Illness INITIAL COMMENTS - FREE TEXT/NARRATIVE: Patient is a 35-year-old female presenting to the emergency department with complaints of posterior right upper back pain worsened with movement of her neck and movement of her right shoulder. Patient denies a known injury to the area. States she was doing some heavy lifting yesterday but had no pain when she went to bed last night. Upon waking this morning, she complains of pain in her right upper back extending from her neck to under her right shoulder blade. Pain is worsened by her turning her head and moving her right shoulder. She denies any previous injury to her shoulder or neck, however states she does have scoliosis. Right Shoulder Pain Score (Numeric/FACES): 3 - Related Data Allergies Allergy/AdvReac Type Severity Reaction Status Date / Time adhesive Allergy Severe Blisters Verified 03/27/20 15:45 fish derived Allergy Severe Cannot Verified 03/27/20 15:45 Remember morphine Allergy Severe Shortness Verified 03/27/20 15:45 of Breath Home Meds: Home Meds Cyanocobalamin (Vitamin B-12) [B-12] 1,000 mcg PO DAILY 12/23/15 [History] Past Medical History HEENT History: Reports: Impaired Vision Other HEENT History: wears eyeglasses Gastrointestinal History: Reports: GERD, Other (See Below) Other Gastrointestinal History: during . 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 Neurological History: Reports: Migraines Other Neuro History: Scoliosis--causes migraines, chronic neck pain. Psychiatric History: Reports: ADHD, Anxiety Hematologic History: Reports: B12 Deficiency - Infectious Disease History Infectious Disease History: Reports: Chicken Pox, Shingles - Past Surgical History HEENT Surgical History: Reports: Adenoidectomy, Myringotomy w Tube(s), Tonsillectomy GI Surgical History: Reports: Cholecystectomy Female Surgical History: Reports: Section, Tubal Ligation Social & Family History - Family History Family Medical History: Noncontributory - Tobacco Use Smoking Status *Q: Current Every Day Smoker Years of Tobacco use: 10 Packs/Tins Daily: 0.5 - Caffeine Use Caffeine Use: Reports: Coffee - Recreational Drug Use Recreational Drug Use: No - Living Situation & Occupation Living situation: Reports: , with Significant Other, with Family Occupation: Student Review of Systems - Review of Systems Review Of Systems: Comprehensive ROS is negative, except as noted in HPI. ED EXAM, GENERAL - Physical Exam Exam: See Below Exam Limited By: No Limitations General Appearance: Alert, WD/WN, No Apparent Distress Respiratory/Chest: No Respiratory Distress, Lungs Clear, Normal Breath Sounds, No Accessory Muscle Use, Chest Non-Tender Cardiovascular: Normal Peripheral Pulses, Regular Rate, Rhythm, No Edema, No Gallop, No JVD, No Murmur, No Rub Back Exam: Other (To palpation of the right upper back along the rhomboid major muscle. Patient has full range of motion of her right shoulder; however, abduction causes pain in her right upper back. Pain is also worsened by turning her head from right to left.) Neurological: Alert, Oriented, CN II-XII Intact, Normal Cognition, Normal Gait, Normal Reflexes, No Motor/Sensory Deficits Psychiatric: Normal Affect, Normal Mood Skin Exam: Warm, Dry, Intact, Normal Color, No Rash Course - Vital Signs Last Recorded V/S: Last Vital Signs Temp 98 F 03/27/20 15:43 Pulse 72 03/27/20 15:43 Resp 16 03/27/20 15:43 BP 119/56 L 03/27/20 15:43 Pulse Ox 99 03/27/20 15:43 - Orders/Labs/Meds Meds: Medications Discontinued Medications Generic Name Dose Route Start Last Admin Trade Name Freq PRN Reason Stop Dose Admin Cyclobenzaprine HCl 10 mg 03/27/20 15:54 03/27/20 16:16 Flexeril PO 03/27/20 15:55 10 mg ONETIME ONE Administration Ketorolac Tromethamine 60 mg 03/27/20 15:54 03/27/20 16:17 Toradol IM 03/27/20 15:55 60 mg ONETIME ONE Administration - Re-Assessments/Exams Free Text/Narrative Re-Assessment/Exam: 03/27/20 16:01 Patient is a 35-year-old female presenting to the emergency department with complaints of pain in her right upper back worsened with movement of her right arm and with movement of her neck. On exam, she is tender to palpation along the rhomboid major muscle. This is the area where it also hurts with movement of her neck and abduction of her arm. Discussed with patient that she likely has a muscle strain and spasm of the rhomboid major muscle. This could be related to sleeping wrong or to the lifting that she was doing last evening. We will give her an injection of Toradol as well as a dose of Flexeril in the emergency department. I will write prescription for Naprosyn and Flexeril through the [facility]. Recommend that she apply heat intermittently for the next few days as well as do some stretching exercises. She is in agreement with this plan. Discharge instructions as documented. Departure - Departure Time of Disposition: 16:03 Disposition: Home, Self-Care 01 Condition: Good Clinical Impression: Muscle strain of right upper back Qualifiers: Encounter type: initial encounter Qualified Code(s): S29.012A - Strain of muscle and tendon of back wall of thorax, initial encounter - Discharge Information *PRESCRIPTION DRUG MONITORING PROGRAM REVIEWED*: No *COPY OF PRESCRIPTION DRUG MONITORING REPORT IN PATIENT VITALY: No Referrals: Cristofer Dunn MD [Primary Care Provider] - Forms: ED Department Discharge Additional Instructions: You were seen in the emergency department for pain to your right shoulder and right upper back. As discussed, it is likely that you experienced a muscle strain with muscle spasms either related to heavy lifting last evening or denies sleeping wrong last night. While in the ER you received an injection of Toradol as well as a dose of Flexeril which is a muscle relaxer. You have been provided a prescription of Naprosyn and Flexeril. Uses medications as prescribed. Apply heat over the area of discomfort would also be beneficial. Would also recommend doing some gentle stretching exercises to try to loosen up those muscles. If you are still having significant discomfort after a week, recommend follow-up with your primary care provider. Return to the ER as needed. Sepsis Event Note (ED) - Evaluation Sepsis Screening Result: No Definite Risk - Focused Exam Vital Signs: Vital Signs Temp Pulse Resp BP Pulse Ox 03/27/20 15:43 98 F 72 16 119/56 L 99
[2020-03-27 16:43] VITALS: BP 98/58; PULSE 61
== END 2020-03-27 16:44 | disposition home or self-care (01) ==
LOC: JD.ED 15:28
DX: S29.012A Strain of muscle and tendon of back wall of thorax, initial encounter (principal); F17.210 Nicotine dependence, cigarettes, uncomplicated; Z88.5 Allergy status to narcotic agent; Z91.013 Allergy to seafood; Z91.048 Other nonmedicinal substance allergy status; X50.0XXA Overexertion from strenuous movement or load, initial encounter
CPT/HCPCS: 99283; A9270; J1885; 96372

== ENCOUNTER 2020-06-18 17:40 | Emergency (ER) | payer MEDICAID ==
[2020-06-18] MEDS ORDERED: Sodium Chloride 0.9% 10 ML Syringe FLUSH PRN (17:58)
[2020-06-18] MEDS ORDERED: Sodium Chloride 0.9% 1,000 ML IV ONE (17:58)
[2020-06-18] MEDS ORDERED: diphenhydrAMINE 50 MG/ML SDV IVPUSH ONE (17:58)
[2020-06-18] MEDS ORDERED: Ketorolac 30 MG/ML SDV IVPUSH ONE (17:58)
[2020-06-18] MEDS ORDERED: Metoclopramide 10 MG/2 ML SDV IVPUSH ONE (17:58)
--- NOTE | 2020-06-18 18:08 | EDM.PDOC ---
ED HPI GENERAL MEDICAL PROBLEM - General Chief Complaint: Headache Stated Complaint: MIGRAINE Time Seen by Provider: 06/18/20 17:47 Source of Information: Reports: Patient, RN Notes Reviewed History Limitations: Reports: No Limitations - History of Present Illness INITIAL COMMENTS - FREE TEXT/NARRATIVE: The patient is a 35-year-old female who presents to the ED for the evaluation of her migraine headache. She notes this started at around 1030 this morning. She is nauseated with this. She has a history of migraines, and states this is typical for her migraine pattern. She feels like there her sledgehammer is beating in her head. She tried some Excedrin and Midol at home, and she states this sometimes can help if she gets on it quick enough. She knows that this headache is stress-induced, as she and her both lost their jobs this morning. She is excessively worried about how other can to pay rent, and whether go to do for [employer] presents, ETC. patient notes that she is light and sound sensitive. She has had no fevers or chills, cough or shortness of breath, any vomiting or diarrhea. Primary care provider is Cleo Trevino. Patient is not on any migraine prophylaxis, and states that she gets not enough headaches for Botox injections. Bilateral Headache Pain Score (Numeric/FACES): 10 - Related Data Allergies Allergy/AdvReac Type Severity Reaction Status Date / Time adhesive Allergy Severe Blisters Verified 06/18/20 17:51 fish derived Allergy Severe Cannot Verified 06/18/20 17:51 Remember morphine Allergy Severe Shortness Verified 06/18/20 17:51 of Breath Home Meds: Home Meds Cyanocobalamin (Vitamin B-12) [B-12] 1,000 mcg PO DAILY 12/23/15 [History] Past Medical History HEENT History: Reports: Impaired Vision Other HEENT History: wears eyeglasses Gastrointestinal History: Reports: GERD, Other (See Below) Other Gastrointestinal History: during . 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 Neurological History: Reports: Migraines Other Neuro History: Scoliosis--causes migraines, chronic neck pain. Psychiatric History: Reports: ADHD, Anxiety Hematologic History: Reports: B12 Deficiency - Infectious Disease History Infectious Disease History: Reports: Chicken Pox, Shingles - Past Surgical History HEENT Surgical History: Reports: Adenoidectomy, Myringotomy w Tube(s), Tonsillectomy GI Surgical History: Reports: Cholecystectomy Female Surgical History: Reports: Section, Tubal Ligation Social & Family History - Family History Family Medical History: No Pertinent Family History - Tobacco Use Tobacco Use Status *Q: Current Every Day Tobacco User Years of Tobacco use: 12 Packs/Tins Daily: 0.5 - Caffeine Use Caffeine Use: Reports: None - Recreational Drug Use Recreational Drug Use: Yes Recreational Drug Type: Reports: Marijuana/Hashish Recreational Drug Use Frequency: Rarely - Living Situation & Occupation Living situation: Reports: , with Significant Other, with Family Occupation: Student ED ROS GENERAL - Review of Systems Review Of Systems: Comprehensive ROS is negative, except as noted in HPI. - Physical Exam Exam: See Below Exam Limited By: No Limitations General Appearance: Alert, WD/WN, No Apparent Distress Eye Exam: Bilateral Eye: EOMI, Normal Inspection, PERRL Respiratory/Chest: No Respiratory Distress, Lungs Clear, Normal Breath Sounds, No Accessory Muscle Use, Chest Non-Tender Cardiovascular: Normal Peripheral Pulses, Regular Rate, Rhythm, No Edema, No Murmur Neuro Exam (Abbreviated): Alert, Oriented, Normal Cognition, No Motor/Sensory Deficits Psychiatric: Normal Affect, Normal Mood Skin Exam: Warm, Dry, Intact, Normal Color, No Rash Course - Vital Signs Last Recorded V/S: Last Vital Signs Temp 97.1 F 06/18/20 17:49 Pulse 100 06/18/20 17:49 Resp 19 06/18/20 17:49 BP 115/66 06/18/20 17:49 Pulse Ox 98 06/18/20 17:49 - Orders/Labs/Meds Orders: Active Orders 24 hr Category Date Time Status Peripheral IV Care [RC] . DIRECTED Care 06/18/20 17:58 Ordered Sodium Chloride 0.9% [Saline Flush] Med 06/18/20 17:58 Active 10 ml FLUSH ASDIRECTED PRN Peripheral IV Insertion Adult [OM.PC] Routine Oth 06/18/20 17:58 Ordered Medication Orders Sodium Chloride (Saline Flush) 10 ml FLUSH ASDIRECTED PRN PRN Reason: Keep Vein Open Last Admin: 06/18/20 18:14 Dose: 10 ml Documented by: ESTEVAN Meds: Medications Generic Name Dose Route Start Last Admin Trade Name Mariann PRN Reason Stop Dose Admin Sodium Chloride 10 ml 06/18/20 17:58 06/18/20 18:14 Saline Flush FLUSH 10 ml ASDIRECTED PRN Administration Keep Vein Open Discontinued Medications Generic Name Dose Route Start Last Admin Trade Name Mariann PRN Reason Stop Dose Admin Diphenhydramine HCl 25 mg 06/18/20 17:58 06/18/20 18:12 Benadryl IVPUSH 06/18/20 17:59 25 mg ONETIME ONE Administration Sodium Chloride 1,000 mls @ 999 mls/hr 06/18/20 17:58 06/18/20 18:11 Normal Saline IV 06/18/20 18:58 999 mls/hr ASDIRECTED ONE Administration Ketorolac Tromethamine 30 mg 06/18/20 17:58 06/18/20 18:11 Toradol IVPUSH 06/18/20 17:59 30 mg ONETIME ONE Administration Metoclopramide HCl 10 mg 06/18/20 17:58 06/18/20 18:11 Reglan IVPUSH 06/18/20 17:59 10 mg ONETIME ONE Administration - Re-Assessments/Exams Free Text/Narrative Re-Assessment/Exam: 06/18/20 18:08 Patient presents to the ED for her migraine headache. Get her some IV medications and fluids for this and hopefully discharge her home have been given time to work. Departure - Departure Time of Disposition: 19:07 Disposition: Home, Self-Care 01 Condition: Good Clinical Impression: Headache Qualifiers: Headache type: tension-type Headache chronicity pattern: acute headache Intractability: not intractable Qualified Code(s): G44.209 - Tension-type headache, unspecified, not intractable - Discharge Information *PRESCRIPTION DRUG MONITORING PROGRAM REVIEWED*: No *COPY OF PRESCRIPTION DRUG MONITORING REPORT IN PATIENT VITALY: No Instructions: Recurrent Migraine Headache, [id number] Referrals: Cleo Trevino PA-C [Primary Care Provider] - Forms: ED Department Discharge Additional Instructions: You were evaluated in the ED for your headache. You were given a combination of medications and IV fluid for management. This did seem to provide you pretty good relief of your symptoms. Recommend that you go home and rest in a quiet, darkened room. Try also to keep well hydrated. Please return to the ED if your symptoms should change or worsen. Sepsis Event Note (ED) - Evaluation Sepsis Screening Result: No Definite Risk - Focused Exam Vital Signs: Vital Signs Temp Pulse Resp BP Pulse Ox 06/18/20 17:49 97.1 F 100 19 115/66 98 - My Orders Last 24 Hours: My Active Orders 06/18/20 17:58 Peripheral IV Care [RC] . DIRECTED Sodium Chloride 0.9% [Saline Flush] 10 ml FLUSH ASDIRECTED PRN Peripheral IV Insertion Adult [OM.PC] Routine - Assessment/Plan Last 24 Hours: My Active Orders 06/18/20 17:58 Peripheral IV Care [RC] . DIRECTED Sodium Chloride 0.9% [Saline Flush] 10 ml FLUSH ASDIRECTED PRN Peripheral IV Insertion Adult [OM.PC] Routine
[2020-06-18 19:26] VITALS: BP 97/57; PULSE 75
== END 2020-06-18 19:23 | disposition home or self-care (01) ==
LOC: JD.ED 17:40
DX: G44.209 Tension-type headache, unspecified, not intractable (principal); M41.9 Scoliosis, unspecified; F17.210 Nicotine dependence, cigarettes, uncomplicated; Z91.040 Latex allergy status; Z91.018 Allergy to other foods; Z88.5 Allergy status to narcotic agent
CPT/HCPCS: 96374; 96375; 99283; J1200; J1885; J2765; J7030

== ENCOUNTER 2021-01-19 00:29 | Emergency (ER) | payer MEDICAID ==
[2021-01-19 00:43] VITALS: BP 112/66; PULSE 76
--- NOTE | 2021-01-19 00:45 | EDM.PDOC ---
ED HPI GENERAL MEDICAL PROBLEM - General Chief Complaint: Respiratory Problem Stated Complaint: COUGH Time Seen by Provider: 01/19/21 00:45 Source of Information: Reports: Patient History Limitations: Reports: No Limitations - History of Present Illness INITIAL COMMENTS - FREE TEXT/NARRATIVE: Patient is a 35-year-old female who is complaining of a worsening cough that is been going on past 4 days. Cough is nonproductive but she has paroxysms of coughing that are more severe. She denies bringing up any phlegm denies any fever or chills denies any nausea vomiting diarrhea. Patient had an upper respiratory infection approximately 3 weeks ago which had resolved and she had been doing better until 4 days ago. Patient is a cigarette smoker and has had bronchitis several times in the past. She has no Covid risk factors. She has no dyspnea on exertion. Duration: Day(s): (4) Location: Reports: Chest Quality: Reports: Ache Severity: Moderate Improves with: Reports: None Worsens with: Reports: Other (Coughing.) Associated Symptoms: Reports: Chest Pain, Cough. Denies: cough w sputum, Fever/Chills, Loss of Appetite, Nausea/Vomiting, Shortness of Breath ribs Pain Score (Numeric/FACES): 4 - Related Data Allergies Allergy/AdvReac Type Severity Reaction Status Date / Time adhesive Allergy Severe Blisters Verified 01/19/21 00:43 fish derived Allergy Severe Cannot Verified 01/19/21 00:43 Remember morphine Allergy Severe Shortness Verified 01/19/21 00:43 of Breath Home Meds: Home Meds Albuterol [Ventolin HFA] 2 puff INH Q6H PRN #1 puff 01/19/21 [Rx] Azithromycin 250 mg PO DAILY #6 tablet 01/19/21 [Rx] Codeine/guaiFENesin [Robitussin AC] 60 bottle PO QID PRN #1 bottle 01/19/21 [Rx] Past Medical History HEENT History: Reports: Impaired Vision Other HEENT History: wears eyeglasses Gastrointestinal History: Reports: GERD, Other (See Below) Other Gastrointestinal History: during . 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 Neurological History: Reports: Migraines Other Neuro History: Scoliosis--causes migraines, chronic neck pain. Psychiatric History: Reports: ADHD, Anxiety Hematologic History: Reports: B12 Deficiency - Infectious Disease History Infectious Disease History: Reports: Chicken Pox, Shingles - Past Surgical History HEENT Surgical History: Reports: Adenoidectomy, Myringotomy w Tube(s), Tonsillectomy GI Surgical History: Reports: Cholecystectomy Female Surgical History: Reports: Section, Tubal Ligation Social & Family History - Family History Family Medical History: No Pertinent Family History - Tobacco Use Tobacco Use Status *Q: Current Every Day Tobacco User Years of Tobacco use: 10 Packs/Tins Daily: 0.5 - Caffeine Use Caffeine Use: Reports: None - Recreational Drug Use Recreational Drug Use: No - Living Situation & Occupation Living situation: Reports: , with Significant Other, with Family Occupation: Student ED ROS GENERAL - Review of Systems Review Of Systems: Comprehensive ROS is negative, except as noted in HPI. ED EXAM, GENERAL - Physical Exam Exam: See Below Exam Limited By: No Limitations General Appearance: Alert, No Apparent Distress Head: Atraumatic Neck: Normal Inspection, Supple Respiratory/Chest: No Respiratory Distress, Lungs Clear, Normal Breath Sounds. No: Decreased Breath Sounds, Rales, Rhonchi, Wheezing, Retractions Cardiovascular: Regular Rate, Rhythm, No Edema GI/Abdominal: Normal Bowel Sounds, Soft, Non-Tender Back Exam: Normal Inspection Extremities: Normal Inspection, No Pedal Edema Neurological: Alert, Oriented Psychiatric: Normal Affect Skin Exam: Warm, Dry, Normal Color Course - Vital Signs Text/Narrative:: She was given 1 DuoNeb treatment and some Robitussin-AC after which she feels much better. She is started on Zithromax given 500 mg p.o. and I will give her prescriptions for all 3 above. We will send her out with a spacer I have given her instructions how to use this with albuterol. She has agreed to quit smoking cigarettes and will return to ER if her symptoms are worse and follow-up with her PCP. Last Recorded V/S: Last Vital Signs Temp 96.6 F L 01/19/21 00:40 Pulse 76 01/19/21 00:40 Resp 18 01/19/21 00:40 BP 112/66 01/19/21 00:40 Pulse Ox 99 01/19/21 00:51 - Orders/Labs/Meds Orders: Active Orders 24 hr Category Date Time Status RT Aerosol Therapy [RC] ASDIRECTED Care 01/19/21 00:51 Active Meds: Medications Discontinued Medications Generic Name Dose Route Start Last Admin Trade Name Mariann PRN Reason Stop Dose Admin Albuterol/Ipratropium 3 ml 01/19/21 00:50 01/19/21 01:01 Albuterol/Ipratropium 3.0-0.5 Mg/3 Ml Neb Soln NEB 01/19/21 00:51 3 ml ONETIME ONE Administration Azithromycin 500 mg 01/19/21 01:08 Azithromycin 250 Mg Tab PO 01/19/21 01:09 ONETIME ONE Azithromycin 500 mg/ Sodium 250 mls @ 250 mls/hr 01/19/21 00:52 01/19/21 01:09 Chloride IV 01/19/21 01:51 Not Given ONETIME ONE Departure - Departure Time of Disposition: 01:19 Disposition: Home, Self-Care 01 Condition: Good Clinical Impression: Acute bronchitis - Discharge Information Instructions: Shortness of Breath, Adult, [id number], Steps to Quit Smoking, [id number], Acute Bronchitis, Adult Referrals: Cristofer Dunn MD [Primary Care Provider] - Forms: ED Department Discharge Additional Instructions: With smoking cigarettes. Meds as prescribed. Return to ER if worse. Follow-up with PCP if not improving. Sepsis Event Note (ED) - Evaluation Sepsis Screening Result: No Definite Risk - Focused Exam Vital Signs: Vital Signs Temp Pulse Resp BP Pulse Ox Pulse Ox 01/19/21 00:51 99 01/19/21 00:40 96.6 F L 76 18 112/66 96 - My Orders Last 24 Hours: My Active Orders 01/19/21 00:51 RT Aerosol Therapy [RC] ASDIRECTED - Assessment/Plan Last 24 Hours: My Active Orders 01/19/21 00:51 RT Aerosol Therapy [RC] ASDIRECTED
[2021-01-19] MEDS ORDERED: Albuterol/Ipratropium 3.0-0.5 MG/3 ML Neb Soln NEB ONE (00:50)
[2021-01-19] MEDS ORDERED: Codeine/guaiFENesin 10-100 MG/5 ML Syrup 5 ML Syringe PO ONE (00:51)
[2021-01-19] MEDS ORDERED: Azithromycin 500 MG in Sodium Chloride 0.9% 250 ML IV ONE (00:52)
[2021-01-19] MEDS ORDERED: Azithromycin 250 MG Tab PO ONE (01:08)
[2021-01-19] MEDS ORDERED: guaiFENesin 100 MG/5 ML Soln 10 ML UD Cup PO ONE (01:20)
== END 2021-01-19 01:34 | disposition home or self-care (01) ==
LOC: JD.ED 00:29
DX: J20.9 Acute bronchitis, unspecified (principal); Z88.6 Allergy status to analgesic agent; Z91.048 Other nonmedicinal substance allergy status; Z91.013 Allergy to seafood; Z72.0 Tobacco use
CPT/HCPCS: 94640; 99283; A9270; J7620-GY

== ENCOUNTER 2021-03-10 10:54 | Emergency (ER) | payer MEDICAID ==
[2021-03-10 11:37] VITALS: BP 110/78; PULSE 95
[2021-03-10] MEDS ORDERED: Metoclopramide 10 MG/2 ML SDV IM ONE (12:19)
[2021-03-10] MEDS ORDERED: diphenhydrAMINE 50 MG/ML SDV IM ONE (12:19)
[2021-03-10] MEDS ORDERED: Ketorolac 30 MG/ML SDV IM ONE (12:19)
--- NOTE | 2021-03-10 12:38 | EDM.PDOC ---
ED HPI GENERAL MEDICAL PROBLEM - General Chief Complaint: Medication Administration Stated Complaint: MIGRAINE Time Seen by Provider: 03/10/21 12:11 Source of Information: Reports: Patient, RN Notes Reviewed History Limitations: Reports: No Limitations - History of Present Illness INITIAL COMMENTS - FREE TEXT/NARRATIVE: Patient is a 35-year-old female who presents to the ER for the evaluation of her migraine headache. Patient notes that she has a history of migraine headaches, and this 1 is located behind her left eye, and it seems to radiate through the whole side of her head, and is having some pain into her lower face as well. Patient notes that she ran out of her oral medications, and does not have an appoint with her provider, for another 10 days or so, so she is not been able to take these. She states that the medications that she is prescribed, do seem to help with the headache situation as well. She has been using some Zofran that she has had at home, Excedrin Migraine, Tylenol ibuprofen, all of which she had last night, but has not had any this morning. No worsening sick-like symptoms fevers or chills, cough or shortness of breath. States that she was trying to go to the walk-in clinic to get her medications refilled, she states that this is where they had been filled in the past. But they would not oblige. Primary care provider is Dr. Mari. Left Headache Pain Score (Numeric/FACES): 10 - Related Data Allergies Allergy/AdvReac Type Severity Reaction Status Date / Time adhesive Allergy Severe Blisters Verified 03/10/21 11:37 fish derived Allergy Severe Cannot Verified 03/10/21 11:37 Remember morphine Allergy Severe Shortness Verified 03/10/21 11:37 of Breath Home Meds: Home Meds ALPRAZolam [Xanax] 0.25 mg PO TID #42 tab 03/10/21 [Rx] Fluticasone Propionate [Flonase] 1 spray BHUMI BID 03/10/21 [History] Prazosin [Minpress] 1 mg PO BEDTIME #14 cap 03/10/21 [Rx] busPIRone [Buspar] 10 mg PO BID #28 tab 03/10/21 [Rx] Past Medical History HEENT History: Reports: Impaired Vision Other HEENT History: wears eyeglasses Gastrointestinal History: Reports: GERD, Other (See Below) Other Gastrointestinal History: during . 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 Neurological History: Reports: Migraines Other Neuro History: Scoliosis--causes migraines, chronic neck pain. Psychiatric History: Reports: ADHD, Anxiety Hematologic History: Reports: B12 Deficiency - Infectious Disease History Infectious Disease History: Reports: Chicken Pox, Shingles - Past Surgical History HEENT Surgical History: Reports: Adenoidectomy, Myringotomy w Tube(s), Tonsillectomy GI Surgical History: Reports: Cholecystectomy Female Surgical History: Reports: Section, Tubal Ligation Social & Family History - Family History Family Medical History: No Pertinent Family History - Caffeine Use Caffeine Use: Reports: None - Living Situation & Occupation Living situation: Reports: , with Significant Other, with Family Occupation: Student ED ROS GENERAL - Review of Systems Review Of Systems: Comprehensive ROS is negative, except as noted in HPI. ED EXAM, GENERAL - Physical Exam Exam: See Below Exam Limited By: No Limitations General Appearance: Alert, WD/WN, No Apparent Distress Eye Exam: Bilateral Eye: EOMI, Normal Inspection, PERRL Respiratory/Chest: No Respiratory Distress, Lungs Clear, Normal Breath Sounds, No Accessory Muscle Use, Chest Non-Tender Cardiovascular: Normal Peripheral Pulses, Regular Rate, Rhythm, No Edema GI/Abdominal: Normal Bowel Sounds, Soft, Non-Tender, No Distention, No Mass Extremities: Normal Inspection, Normal Capillary Refill Neurological: Alert, Oriented, Normal Cognition, No Motor/Sensory Deficits Psychiatric: Normal Affect, Normal Mood Skin Exam: Warm, Dry, Intact, Normal Color, No Rash Course - Vital Signs Last Recorded V/S: Last Vital Signs Temp 99.4 F 03/10/21 11:32 Pulse 95 03/10/21 11:32 Resp 18 03/10/21 11:32 BP 110/78 03/10/21 11:32 Pulse Ox 95 03/10/21 11:32 - Orders/Labs/Meds Meds: Medications Discontinued Medications Generic Name Dose Route Start Last Admin Trade Name Freq PRN Reason Stop Dose Admin Diphenhydramine HCl 25 mg 03/10/21 12:19 Diphenhydramine 50 Mg/Ml Sdv IM 03/10/21 12:20 ONETIME ONE Ketorolac Tromethamine 30 mg 03/10/21 12:19 Ketorolac 30 Mg/Ml Sdv IM 03/10/21 12:20 ONETIME ONE Metoclopramide HCl 10 mg 03/10/21 12:19 Metoclopramide 10 Mg/2 Ml Sdv IM 03/10/21 12:20 ONETIME ONE - Re-Assessments/Exams Free Text/Narrative Re-Assessment/Exam: 03/10/21 12:36 Patient presents to the ER for her migraine headache, we will go ahead and give her some IM medication for the headache, and refill her prescriptions, so she can make it to her doctor's appointment and roughly 10 days time. I will refill her medications enough for a 2-week supply. I told her that this is a one-time offer, and she verbalized understanding. Departure - Departure Time of Disposition: 12:37 Disposition: Home, Self-Care 01 Condition: Good Clinical Impression: Encounter for medication refill Migraine Qualifiers: Migraine type: without aura Status migrainosus presence: without status migrainosus Intractability: not intractable Qualified Code(s): G43.009 - Migraine without aura, not intractable, without status migrainosus - Discharge Information *PRESCRIPTION DRUG MONITORING PROGRAM REVIEWED*: Yes *COPY OF PRESCRIPTION DRUG MONITORING REPORT IN PATIENT VITALY: No Prescriptions: busPIRone [Buspar] 10 mg PO BID #28 tab Prazosin [Minpress] 1 mg PO BEDTIME #14 cap ALPRAZolam [Xanax] 0.25 mg PO TID #42 tab Instructions: Migraine Headache, [id number] Referrals: Cristofer Dunn MD [Primary Care Provider] - Forms: ED Department Discharge, ED Return to Work/School Form Additional Instructions: You were evaluated in the ED for your headache. You were given a combination of medications for management. This did seem to provide you pretty good relief of your symptoms. Recommend that you go home and rest in a quiet, darkened room. Try also to keep well hydrated. You have been provided with a 2-week supply of your normal medications, so that you may make it to your next doctor's appointment in roughly 10 days for refill of medications. This medication was electronically sent to [facility]. Please return to the ED if your symptoms should change or worsen. Sepsis Event Note (ED) - Evaluation Sepsis Screening Result: No Definite Risk - Focused Exam Vital Signs: Vital Signs Temp Pulse Resp BP Pulse Ox 03/10/21 11:32 99.4 F 95 18 110/78 95
== END 2021-03-10 13:08 | disposition home or self-care (01) ==
LOC: JD.ED 10:54
DX: G43.009 Migraine without aura, not intractable, without status migrainosus (principal); Z76.0 Encounter for issue of repeat prescription; Z91.013 Allergy to seafood; Z88.5 Allergy status to narcotic agent; Z91.048 Other nonmedicinal substance allergy status
CPT/HCPCS: 96372; 99283; J1200; J1885; J2765

== ENCOUNTER 2021-03-15 16:11 | Emergency (ER) | payer MEDICAID ==
[2021-03-15 16:32] VITALS: BP 117/69; PULSE 81
--- NOTE | 2021-03-15 18:31 | CR ---
Abdomen: Supine view of the abdomen was obtained. Comparison: Prior abdominal x-ray of 07/22/12. Bowel gas pattern is normal. Surgical clips are seen from prior cholecystectomy. Small calcifications are seen within the pelvis most likely due to phleboliths. No discrete soft tissue finding is seen. Bony structure shows nothing acute. Impression: 1. Nothing acute is seen on supine abdominal study. Diagnostic code #2
[2021-03-15] MEDS ORDERED: Magnesium Citrate Solution 296 ML Bottle PO ONE (18:51)
[2021-03-15] MEDS ORDERED: Ketorolac 30 MG/ML SDV IVPUSH ONE (18:51)
--- NOTE | 2021-03-15 18:57 | EDM.PDOC ---
ED HPI GENERAL MEDICAL PROBLEM - General Chief Complaint: Abdominal Pain Stated Complaint: ABDOMINAL PAIN/ BLOATING Time Seen by Provider: 03/15/21 16:50 Source of Information: Reports: Patient History Limitations: Reports: No Limitations - History of Present Illness INITIAL COMMENTS - FREE TEXT/NARRATIVE: 35-year-old female presents the emergency department with complaints of right lower quadrant abdominal pain. 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 She states that right after that her abdomen felt bloated and distended. She denies any fever, chills, nausea, vomiting or diarrhea associated with this. She states that prior to this event she felt perfectly fine and has had no problems she states that over the past 24 hours she has had foul-smelling bowel movements. She is a 1 pack-a-day smoker for the past 15 years. She drinks alcohol on occasion. She states she is otherwise healthy. Right Lower Abdomen Pain Score (Numeric/FACES): 8 - Related Data Allergies Allergy/AdvReac Type Severity Reaction Status Date / Time adhesive Allergy Severe Blisters Verified 03/15/21 16:32 fish derived Allergy Severe Cannot Verified 03/15/21 16:32 Remember morphine Allergy Severe Shortness Verified 03/15/21 16:32 of Breath Home Meds: Home Meds ALPRAZolam [Xanax] 0.25 mg PO TID #42 tab 03/10/21 [Rx] Fluticasone Propionate [Flonase] 1 spray BHUMI BID 03/10/21 [History] Prazosin [Minpress] 1 mg PO BEDTIME #14 cap 03/10/21 [Rx] busPIRone [Buspar] 10 mg PO BID #28 tab 03/10/21 [Rx] Past Medical History HEENT History: Reports: Impaired Vision Other HEENT History: wears eyeglasses Gastrointestinal History: Reports: GERD, Other (See Below) Other Gastrointestinal History: during . Genitourinary History: Reports: Renal Calculus, UTI, Recurrent ACTUARY History: Reports: , Other (See Below) Other ACTUARY History: tubal ligation Musculoskeletal History: Reports: Back Pain, Chronic, Other (See Below) Other Musculoskeletal History: scoliosis. Neurological History: Reports: Migraines Other Neuro History: Scoliosis--causes migraines, chronic neck pain. Psychiatric History: Reports: ADHD, Anxiety, PTSD Hematologic History: Reports: B12 Deficiency - Infectious Disease History Infectious Disease History: Reports: Chicken Pox, Shingles - Past Surgical History HEENT Surgical History: Reports: Adenoidectomy, Myringotomy w Tube(s), Tonsillectomy GI Surgical History: Reports: Cholecystectomy Female Surgical History: Reports: Section, Tubal Ligation Social & Family History - Family History Family Medical History: No Pertinent Family History - Tobacco Use Tobacco Use Status *Q: Current Every Day Tobacco User Years of Tobacco use: 5 Packs/Tins Daily: 0.5 - Caffeine Use Caffeine Use: Reports: Tea - Recreational Drug Use Recreational Drug Use: No - Living Situation & Occupation Living situation: Reports: , with Significant Other, with Family Occupation: Student ED ROS GENERAL - Review of Systems Review Of Systems: Comprehensive ROS is negative, except as noted in HPI. ED EXAM, GI/ABD - Physical Exam Exam: See Below Exam Limited By: No Limitations General Appearance: Alert, WD/WN, No Apparent Distress Ears: Normal External Exam, Hearing Grossly Normal Nose: Normal Inspection Throat/Mouth: Normal Inspection, Normal Lips, Normal Voice, No Airway Compromise Head: Atraumatic Neck: Normal Inspection, Supple Respiratory/Chest: No Respiratory Distress, Lungs Clear, Normal Breath Sounds, No Accessory Muscle Use, Chest Non-Tender Cardiovascular: Normal Peripheral Pulses, Regular Rate, Rhythm, No Murmur GI/Abdominal Exam: Normal Bowel Sounds, Soft, No Distention, Tender (Tenderness noted to all quadrants with palpation that radiates to right lower quadrant; right lower quadrant is significantly more tender) (Female) Exam: Deferred Rectal (Female) Exam: Deferred Back Exam: Normal Inspection, Full Range of Motion Extremities: Normal Inspection, Normal Range of Motion, Non-Tender, No Pedal Edema, Normal Capillary Refill Neurological: Alert, Oriented, Normal Cognition Psychiatric: Normal Affect, Normal Mood Skin Exam: Warm, Dry, Intact, Normal Color, No Rash Lymphatic: No Adenopathy Course - Vital Signs Text/Narrative:: As stated above, 35-year-old female who presents with sudden onset right lower quadrant abdominal pain as she was bending over to reach out of a cooler. Patient does have tenderness noted to all quadrants of her abdomen that she states radiates to the right lower quadrant. She is more significant tenderness noted to the right lower quadrant with palpation. I have ordered labs to include a CBC, CMP, C-reactive protein. We will also order a KUB of the abdomen. Last Recorded V/S: Last Vital Signs Temp 98 F 03/15/21 16:30 Pulse 81 03/15/21 16:30 Resp 16 03/15/21 16:30 BP 117/69 03/15/21 16:30 Pulse Ox 98 03/15/21 16:30 - Orders/Labs/Meds Labs: Laboratory Tests 03/15/21 03/15/21 Range/Units 16:47 16:47 WBC 7.37 (3.98-10.04) K/mm3 RBC 4.50 (3.98-5.22) M/mm3 Hgb 13.6 (11.2-15.7) gm/dl Hct 40.8 (34.1-44.9) % MCV 90.7 D (79.4-94.8) fl MCH 30.2 (25.6-32.2) pg MCHC 33.3 (32.2-35.5) g/dl RDW Std Deviation 41.4 (36.4-46.3) fL Plt Count 251 (182-369) K/mm3 MPV 11.1 (9.4-12.3) fl Neut % (Auto) 48.6 (34.0-71.1) % Lymph % (Auto) 43.7 (19.3-51.7) % Dent % (Auto) 6.0 (4.7-12.5) % Eos % (Auto) 1.2 (0.7-5.8) Baso % (Auto) 0.4 (0.1-1.2) % Neut # (Auto) 3.58 (1.56-6.13) K/mm3 Lymph # (Auto) 3.22 (1.18-3.74) K/mm3 Dent # (Auto) 0.44 H (0.24-0.36) K/mm3 Eos # (Auto) 0.09 (0.04-0.36) K/mm3 Baso # (Auto) 0.03 (0.01-0.08) K/mm3 Sodium 140 (136-145) mEq/L Potassium 3.6 (3.5-5.1) mEq/L Chloride 104 (98-107) mEq/L Carbon Dioxide 31 (21-32) mEq/L Anion Gap 8.6 (5-15) BUN 7 (7-18) mg/dL Creatinine 0.7 (0.55-1.02) mg/dL Est Cr Clr Drug Dosing 80.57 mL/min Estimated GFR (MDRD) > 60 (>60) mL/min BUN/Creatinine Ratio 10.0 L (14-18) Glucose 89 (70-99) mg/dL Calcium 8.2 L (8.5-10.1) mg/dL Magnesium 2.0 (1.8-2.4) mg/dL Total Bilirubin 0.1 L (0.2-1.0) mg/dL AST 14 L (15-37) U/L ALT 21 (14-59) U/L Alkaline Phosphatase 43 L (46-116) U/L C-Reactive Protein <0.2 (<1.0) mg/dL Total Protein 6.5 (6.4-8.2) g/dl Albumin 3.6 (3.4-5.0) g/dl Globulin 2.9 gm/dL Albumin/Globulin Ratio 1.2 (1-2) - Re-Assessments/Exams Free Text/Narrative Re-Assessment/Exam: 03/15/21 18:00 Flatplate of the abdomen was reviewed by myself and Dr. Kaur. Patient has a moderate amount of stool noted in her colon. 03/15/21 19:05 Hematology reveals a WBC of 7.96, hemoglobin 11.8, hematocrit 35.1, platelet count 254 Chemistry reveals a sodium of 134, potassium 3.8, carbon dioxide 20, anion gap 16.8, BUN 6, creatinine 0.5, glucose 102, calcium 8.4, magnesium 1.5, total bilirubin 0.5, AST 30, ALT 26, alk phos 131, C-reactive protein 12.7 Radiologist impression supine view of the abdomen: Nothing acute is appreciated on supine view of the abdomen. Patient is requesting pain medication. I have ordered for her to receive 30 mg of Toradol IV. We will also order the patient to receive half bottle of magnesium citrate as she does appear to have a large amount of stool noted in her bowels. She has been instructed to drink half the bottle while in the emergency department and if no bowel movements and is achieved in 3 hours she will drink the remainder. Departure - Departure Time of Disposition: 19:07 Disposition: Home, Self-Care 01 Condition: Good Clinical Impression: Constipation Qualifiers: Constipation type: unspecified constipation type Qualified Code(s): K59.00 - Constipation, unspecified - Discharge Information Instructions: Constipation, Adult Referrals: Cristofer Dunn MD [Primary Care Provider] - Additional Instructions: You were seen in the emergency department with sudden onset right lower quadrant abdominal pain when you bent over to reach into a cooler. Lab studies were completed and these were all essentially unremarkable. There is no signs of infection or inflammation. Abdominal x-ray did show that you have a moderate amount of stool in your colon. This will cause a significant amount of pain. While in the emergency department you were given one half bottle of magnesium citrate. If you do not have a bowel movement within 3 hours, recommend that you drink the remaining bottle of magnesium citrate. You should have a very good bowel movement after this. Abdominal pain should resolve after this time. If it does not, do not hesitate return to the emergency department. Sepsis Event Note (ED) - Evaluation Sepsis Screening Result: No Definite Risk - Focused Exam Vital Signs: Vital Signs Temp Pulse Resp BP Pulse Ox 03/15/21 16:30 98 F 81 16 117/69 98
== END 2021-03-15 19:24 | disposition home or self-care (01) ==
LOC: JD.ED 16:11
DX: K59.00 Constipation, unspecified (principal); Z72.0 Tobacco use; Z91.048 Other nonmedicinal substance allergy status; Z91.013 Allergy to seafood; Z88.5 Allergy status to narcotic agent
CPT/HCPCS: 36415; 74018; 80053; 83735; 85025; 86140; 96374; 99284; A9270; J1885; 99283

== ENCOUNTER 2021-06-23 16:38 | Emergency (ER) | payer MEDICAID ==
[2021-06-23 18:11] VITALS: BP 137/122; PULSE 93
[2021-06-23] MEDS ORDERED: diphenhydrAMINE 50 MG/ML SDV IM ONE (18:16)
[2021-06-23] MEDS ORDERED: Metoclopramide 10 MG/2 ML SDV IM ONE (18:16)
[2021-06-23] MEDS ORDERED: Ketorolac 30 MG/ML SDV IM ONE (18:16)
--- NOTE | 2021-06-23 18:26 | EDM.PDOC ---
ED HPI GENERAL MEDICAL PROBLEM - General Chief Complaint: Headache Stated Complaint: HEADACHE Time Seen by Provider: 06/23/21 18:15 Source of Information: Reports: Patient, RN Notes Reviewed History Limitations: Reports: No Limitations - History of Present Illness INITIAL COMMENTS - FREE TEXT/NARRATIVE: Patient is a 36-year-old female presents to the ER for her migraine headache. States that she has a history of migraine headaches and she typically gets them after she has times where she cries from her PTSD. States that this headache developed today and she has been taking some Excedrin, Xanax and nothing seems to really be helping much. She states it feels like there is an ice pick in her left eye. Again this is not different than her normal migraine pain. She sta laurie has been on multiple migraine medications in the past and nothing really seems to help. Has been given the Toradol/Benadryl/Reglan combo in the ER and states that this seems to help the best. No fevers, no chills, no cough, no shortness of breath, no nausea/vomiting/diarrhea. Headache Pain Score (Numeric/FACES): 10 - Related Data Allergies Allergy/AdvReac Type Severity Reaction Status Date / Time adhesive Allergy Severe Blisters Verified 06/23/21 18:14 fish derived Allergy Severe Cannot Verified 06/23/21 18:14 Remember haloperidol [From Haldol] Allergy Severe Agitation Verified 06/23/21 18:14 morphine Allergy Severe Shortness Verified 06/23/21 18:14 of Breath Home Meds: Home Meds ALPRAZolam [Xanax] 0.25 mg PO TID #42 tab 03/10/21 [Rx] Fluticasone Propionate [Flonase] 1 spray BHUMI BID 03/10/21 [History] Prazosin [Minpress] 1 mg PO BEDTIME #14 cap 03/10/21 [Rx] busPIRone [Buspar] 10 mg PO BID #28 tab 03/10/21 [Rx] Acetaminophen/Butalbital/Caff [Fioricet 325-50-40 MG] 1 tab PO Q4H PRN #12 tab 06/23/21 [Rx] Past Medical History HEENT History: Reports: Impaired Vision Other HEENT History: wears eyeglasses Gastrointestinal History: Reports: GERD, Other (See Below) Other Gastrointestinal History: during . 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 Neurological History: Reports: Migraines Other Neuro History: Scoliosis--causes migraines, chronic neck pain. Psychiatric History: Reports: ADHD, Anxiety, PTSD Hematologic History: Reports: B12 Deficiency - Infectious Disease History Infectious Disease History: Reports: Chicken Pox, Shingles - Past Surgical History HEENT Surgical History: Reports: Adenoidectomy, Myringotomy w Tube(s), Tonsillectomy GI Surgical History: Reports: Cholecystectomy Female Surgical History: Reports: Section, Tubal Ligation Social & Family History - Family History Family Medical History: No Pertinent Family History - Tobacco Use Tobacco Use Status *Q: Current Every Day Tobacco User Years of Tobacco use: 10 Packs/Tins Daily: 0.5 - Caffeine Use Caffeine Use: Reports: Tea - Recreational Drug Use Recreational Drug Use: No - Living Situation & Occupation Living situation: Reports: , with Significant Other, with Family Occupation: Student ED ROS GENERAL - Review of Systems Review Of Systems: Comprehensive ROS is negative, except as noted in HPI. - Physical Exam Exam: See Below Exam Limited By: No Limitations General Appearance: Alert, WD/WN, No Apparent Distress Respiratory/Chest: No Respiratory Distress, Lungs Clear, Normal Breath Sounds, No Accessory Muscle Use, Chest Non-Tender Cardiovascular: Normal Peripheral Pulses, Regular Rate, Rhythm, No Edema Neuro Exam (Abbreviated): Alert, Oriented, Normal Cognition, No Motor/Sensory Deficits Extremities: Normal Inspection, Normal Capillary Refill Psychiatric: Normal Affect, Normal Mood Skin Exam: Warm, Dry, Intact, Normal Color, No Rash Course - Vital Signs Last Recorded V/S: Last Vital Signs Temp 97.8 F 06/23/21 18:10 Pulse 93 06/23/21 18:10 Resp 16 06/23/21 18:10 BP 137/122 H 06/23/21 18:10 Pulse Ox 99 06/23/21 18:10 - Orders/Labs/Meds Meds: Medications Discontinued Medications Generic Name Dose Route Start Last Admin Trade Name Freq PRN Reason Stop Dose Admin Diphenhydramine HCl 25 mg 06/23/21 18:16 06/23/21 18:33 Diphenhydramine 50 Mg/Ml Sdv IM 06/23/21 18:17 25 mg ONETIME ONE Administration Ketorolac Tromethamine 30 mg 06/23/21 18:16 06/23/21 18:32 Ketorolac 30 Mg/Ml Sdv IM 06/23/21 18:17 30 mg ONETIME ONE Administration Metoclopramide HCl 10 mg 06/23/21 18:16 06/23/21 18:33 Metoclopramide 10 Mg/2 Ml Sdv IM 06/23/21 18:17 10 mg ONETIME ONE Administration - Re-Assessments/Exams Free Text/Narrative Re-Assessment/Exam: 06/23/21 18:25 Patient presents to the ER for evaluation of her migraine headache, we will go ahead and give her Toradol/Reglan/Benadryl. I did discuss with her the possibility of trying Fioricet on outpatient basis and she would be willing to at least try these medications. A small prescription of this has been sent on her behalf for to try if she is having further migraines. 06/23/21 19:15 Patient states she is feeling better. And is ready to go home at this time we will go ahead and get her discharged home. Departure - Departure Time of Disposition: 19:15 Disposition: Home, Self-Care 01 Condition: Good Clinical Impression: Migraine Qualifiers: Migraine type: without aura Status migrainosus presence: without status migrainosus Intractability: not intractable Qualified Code(s): G43.009 - Migraine without aura, not intractable, without status migrainosus - Discharge Information *PRESCRIPTION DRUG MONITORING PROGRAM REVIEWED*: Yes *COPY OF PRESCRIPTION DRUG MONITORING REPORT IN PATIENT [place]: No Prescriptions: Acetaminophen/Butalbital/Caff [Fioricet 325-50-40 MG] 1 tab PO Q4H PRN #12 tab PRN Reason: Headache Instructions: Migraine Headache, [id number] Referrals: Cristofer Dunn MD [Primary Care Provider] - Forms: ED Department Discharge Additional Instructions: You were evaluated in the ED for your headache. You were given a combination of medications for management. This did seem to provide you pretty good relief of your symptoms. Recommend that you go home and rest in a quiet, darkened room. Try also to keep well hydrated. You have been given a prescription for a medication called Fioricet this is a medication that you may take 1 to 2 tablets at the onset of headache every 4 hours as needed. Do not exceed 6 tablets in a 24-hour time span. This medication was electronically sent to the [facility] located in the [facility]. Again this medication can be taken at the onset of any sort of migraine type symptoms. This should not be taken on a long-term basis. Please return to the ED if your symptoms should change or worsen. Sepsis Event Note (ED) - Evaluation Sepsis Screening Result: No Definite Risk - Focused Exam Vital Signs: Vital Signs Temp Pulse Resp BP Pulse Ox 06/23/21 18:10 97.8 F 93 16 137/122 H 99
== END 2021-06-23 20:09 | disposition home or self-care (01) ==
LOC: JD.ED 16:38
DX: G43.009 Migraine without aura, not intractable, without status migrainosus (principal); Z91.048 Other nonmedicinal substance allergy status; Z91.013 Allergy to seafood; Z88.5 Allergy status to narcotic agent; Z72.0 Tobacco use
CPT/HCPCS: 96372; 99283; J1200; J1885; J2765

== ENCOUNTER 2021-08-25 20:12 | Emergency (ER) | payer MEDICAID ==
[2021-08-25 20:24] VITALS: BP 131/70; PULSE 101
== END 2021-08-25 21:46 | disposition home or self-care (01) ==
LOC: JD.ED 20:12
DX: S89.92XA Unspecified injury of left lower leg, initial encounter (principal); Z88.5 Allergy status to narcotic agent; Z91.040 Latex allergy status; Z91.013 Allergy to seafood; Z72.0 Tobacco use; W01.0XXA Fall on same level from slipping, tripping and stumbling without subsequent striking against object, initial encounter
CPT/HCPCS: 73564-26-LT; 73564-LT; 99283-25

== ENCOUNTER 2021-09-13 20:42 | Emergency (ER) | payer MEDICAID ==
[2021-09-13] MEDS ORDERED: Orphenadrine 100 MG Tab.ER PO ONE (20:56)
[2021-09-13] MEDS ORDERED: Ketorolac 30 MG/ML SDV IM ONE (20:56)
== END 2021-09-13 21:35 | disposition home or self-care (01) ==
LOC: JD.ED 20:42
DX: M53.3 Sacrococcygeal disorders, not elsewhere classified (principal); K21.9 Gastro-esophageal reflux disease without esophagitis; Z88.5 Allergy status to narcotic agent; Z91.048 Other nonmedicinal substance allergy status; Z91.013 Allergy to seafood
CPT/HCPCS: 72220; 96372; 99283; A9270; J1885

== ENCOUNTER 2021-10-06 16:46 | Emergency (ER) | payer MEDICAID ==
[2021-10-06 16:56] VITALS: BP 144/70; PULSE 101
[2021-10-06] MEDS ORDERED: Acetaminophen/HYDROcodone 325-5 MG Tab PO ONE (17:13)
[2021-10-06] MEDS ORDERED: Ondansetron 4 MG Tab.DIS PO ONE (17:13)
== END 2021-10-06 17:30 | disposition home or self-care (01) ==
LOC: JD.ED 16:46
DX: K04.7 Periapical abscess without sinus (principal); Z88.5 Allergy status to narcotic agent; Z91.040 Latex allergy status; Z91.013 Allergy to seafood; Z72.0 Tobacco use
CPT/HCPCS: 99282; A9270; 99283

== ENCOUNTER 2021-11-07 21:48 | Emergency (ER) | payer MEDICAID ==
[2021-11-07 22:15] VITALS: BP 115/60; PULSE 91
[2021-11-07] MEDS ORDERED: Ketorolac 30 MG/ML SDV IVPUSH ONE (22:22)
[2021-11-07] MEDS ORDERED: Metoclopramide 10 MG/2 ML SDV IVPUSH ONE (22:22)
[2021-11-07] MEDS ORDERED: Sodium Chloride 0.9% 1,000 ML IV ONE (22:22)
[2021-11-07] MEDS ORDERED: diphenhydrAMINE 50 MG/ML SDV IVPUSH ONE (22:22)
== END 2021-11-07 23:42 | disposition home or self-care (01) ==
LOC: JD.ED 21:48
DX: G43.909 Migraine, unspecified, not intractable, without status migrainosus (principal); Z88.5 Allergy status to narcotic agent; Z91.048 Other nonmedicinal substance allergy status; Z91.013 Allergy to seafood; Z72.0 Tobacco use
CPT/HCPCS: 96374; 96375; 99283; J1200; J1885; J2765; J7030

== ENCOUNTER 2021-11-24 21:46 | Emergency (ER) | payer MEDICAID ==
[2021-11-24 22:05] VITALS: BP 118/53; PULSE 79
[2021-11-24] MEDS ORDERED: Sodium Chloride 0.9% 10 ML Syringe FLUSH PRN (22:15)
[2021-11-24] MEDS ORDERED: diphenhydrAMINE 50 MG/ML SDV IVPUSH ONE (22:15)
[2021-11-24] MEDS ORDERED: Ketorolac 30 MG/ML SDV IVPUSH ONE (22:15)
[2021-11-24] MEDS ORDERED: Ondansetron 4 MG/2 ML SDV IVPUSH ONE (22:16)
[2021-11-24] MEDS ORDERED: HYDROmorphone 1 MG/ML Syringe IVPUSH ONE (23:11)
== END 2021-11-24 23:50 | disposition home or self-care (01) ==
LOC: JD.ED 21:46
DX: G43.009 Migraine without aura, not intractable, without status migrainosus (principal); F17.210 Nicotine dependence, cigarettes, uncomplicated; Z90.49 Acquired absence of other specified parts of digestive tract; Z79.899 Other long term (current) drug therapy; Z88.6 Allergy status to analgesic agent; Z91.048 Other nonmedicinal substance allergy status; Z91.013 Allergy to seafood; Z88.8 Allergy status to other drugs, medicaments and biological substances
CPT/HCPCS: 96374; 96375; 99283; J1170; J1200; J1885; J2405

== ENCOUNTER 2022-02-13 19:39 | Emergency (ER) | payer MEDICAID ==
[2022-02-13 19:52] VITALS: BP 131/62; PULSE 86
[2022-02-13] MEDS: Ondansetron 4 MG/2 ML SDV IVPUSH ONE (20:36)
[2022-02-13] MEDS: HYDROmorphone 0.5 MG/0.5 ML Syringe IVPUSH ONE (20:36)
[2022-02-13] MEDS: diphenhydrAMINE 50 MG/ML SDV IVPUSH ONE (20:36)
[2022-02-13] MEDS: Sodium Chloride 0.9% 1,000 ML IV STA (20:36)
[2022-02-13] MEDS: Ketorolac 30 MG/ML SDV IVPUSH ONE (20:36)
== END 2022-02-13 21:25 | disposition home or self-care (01) ==
LOC: JD.ED 19:39
DX: G43.909 Migraine, unspecified, not intractable, without status migrainosus (principal); Z88.5 Allergy status to narcotic agent; Z91.048 Other nonmedicinal substance allergy status; Z91.013 Allergy to seafood
CPT/HCPCS: 96361; 96374; 96375; 99283; J1170; J1200; J1885; J2405; J7030

== ENCOUNTER 2022-04-29 13:54 | Emergency (ER) | payer MEDICAID ==
[2022-04-29 15:18] VITALS: BP 112/74; PULSE 90
[2022-04-29] MEDS ORDERED: Sodium Chloride 0.9% 10 ML Syringe FLUSH PRN (15:33)
[2022-04-29] MEDS ORDERED: Sodium Chloride 0.9% 1,000 ML IV ONE (15:34)
[2022-04-29] MEDS ORDERED: Ketorolac 30 MG/ML SDV IVPUSH ONE (15:34)
[2022-04-29 16:20] LABS: ESTIMATED GFR 118 mL/min (>60)
== END 2022-04-29 17:55 | disposition home or self-care (01) ==
LOC: JD.ED 13:54
DX: N83.201 Unspecified ovarian cyst, right side (principal); F17.210 Nicotine dependence, cigarettes, uncomplicated; Z88.6 Allergy status to analgesic agent; Z91.048 Other nonmedicinal substance allergy status; Z91.013 Allergy to seafood; Z88.8 Allergy status to other drugs, medicaments and biological substances; Z79.899 Other long term (current) drug therapy; Z90.49 Acquired absence of other specified parts of digestive tract
CPT/HCPCS: 36415; 74176; 80053; 81001; 83735; 85025; 86140; 96361; 96374; 99284; J1885; J3490; J7030

== ENCOUNTER 2022-08-26 20:21 | Emergency (ER) | payer MEDICAID ==
[2022-08-26] MEDS ORDERED: Metoclopramide 10 MG/2 ML SDV IVPUSH ONE (21:04)
[2022-08-26] MEDS ORDERED: Sodium Chloride 0.9% 1,000 ML IV STA (21:04)
[2022-08-26] MEDS ORDERED: HYDROmorphone 0.5 MG/0.5 ML Syringe IVPUSH ONE (21:04)
[2022-08-26] MEDS ORDERED: Ketorolac 30 MG/ML SDV IVPUSH ONE (21:04)
[2022-08-26] MEDS ORDERED: diphenhydrAMINE 50 MG/ML SDV IVPUSH ONE (21:05)
[2022-08-26 23:15] VITALS: BP 112/74; PULSE 75
== END 2022-08-26 23:17 | disposition home or self-care (01) ==
LOC: JD.ED 20:21
DX: G43.009 Migraine without aura, not intractable, without status migrainosus (principal); F17.210 Nicotine dependence, cigarettes, uncomplicated; Z88.5 Allergy status to narcotic agent; Z91.048 Other nonmedicinal substance allergy status; Z91.013 Allergy to seafood
CPT/HCPCS: 96361; 96374; 96375; 99283; J1170; J1200; J1885; J2765; J7030

== ENCOUNTER 2022-10-22 23:15 | Emergency (ER) | payer MEDICAID ==
[2022-10-23] MEDS ORDERED: diphenhydrAMINE 50 MG/ML SDV IVPUSH ONE (00:04)
[2022-10-23] MEDS ORDERED: Prochlorperazine 10 MG/2 ML SDV IVPUSH ONE (00:04)
[2022-10-23] MEDS ORDERED: Sodium Chloride 0.9% 10 ML Syringe FLUSH PRN (00:04)
[2022-10-23] MEDS ORDERED: Ketorolac 30 MG/ML SDV IVPUSH ONE (00:04)
[2022-10-23] MEDS ORDERED: Sodium Chloride 0.9% 500 ML IV ONE (00:05)
[2022-10-23 02:26] VITALS: BP 111/80; PULSE 70
== END 2022-10-23 02:20 | disposition home or self-care (01) ==
LOC: JD.ED 23:15
DX: G44.209 Tension-type headache, unspecified, not intractable (principal); Z88.5 Allergy status to narcotic agent; Z91.048 Other nonmedicinal substance allergy status; Z91.013 Allergy to seafood; Z72.0 Tobacco use
CPT/HCPCS: 96361; 96374; 96375; 99283; J0780; J1200; J1885; J3490; J7030

== ENCOUNTER 2022-10-30 06:37 | Day surgery (SDC) | payer MEDICAID ==
[~2022-10-30 06:37] MED LIST: Bupivacaine 0.25% 10 ML SDV ONE; Lactated Ringers 1,000 ML IV SCH; Lidocaine 1% 10 ML MDV ONE; Lidocaine 1%/Sod Bicarbonate in NS 8.4% 1 ML Syringe IDERM PRN; Sodium Chloride 0.9% 10 ML Syringe FLUSH PRN; Sodium Chloride 0.9% 10 ML Syringe FLUSH SCH
[2022-10-30] MEDS ORDERED: fentaNYL 100 MCG/2 ML SDV ONE (06:44)
[2022-10-30] MEDS ORDERED: Lidocaine 1% 5 ML VIAL ONE (06:44)
[2022-10-30] MEDS ORDERED: Midazolam 1 MG/ML 2 ML SDV ONE (06:44)
[2022-10-30] MEDS ORDERED: Propofol 200 MG/20 ML SDV ONE (06:44)
[2022-10-30] MEDS ORDERED: Ketorolac 30 MG/ML SDV ONE (07:53)
[2022-10-30 08:54] VITALS: BP 128/77; PULSE 78
== END 2022-10-30 08:20 | disposition home or self-care (01) ==
LOC: JD.SDS 06:37
PROVIDERS: ATTEND Orthopaedic Surgery
DX: G56.01 Carpal tunnel syndrome, right upper limb (principal); G56.11 Other lesions of median nerve, right upper limb; G43.909 Migraine, unspecified, not intractable, without status migrainosus; G47.00 Insomnia, unspecified; F90.2 Attention-deficit hyperactivity disorder, combined type; K58.9 Irritable bowel syndrome, unspecified; F90.9 Attention-deficit hyperactivity disorder, unspecified type; E53.8 Deficiency of other specified B group vitamins; M54.50 Low back pain, unspecified; G89.29 Other chronic pain; Z79.899 Other long term (current) drug therapy; Z98.890 Other specified postprocedural states; Z88.6 Allergy status to analgesic agent; Z88.8 Allergy status to other drugs, medicaments and biological substances; Z87.891 Personal history of nicotine dependence
CPT/HCPCS: 64721; J1885; J2250; J2704; J3010; J3490; J7120; 01810

== ENCOUNTER 2022-10-31 19:32 | Emergency (ER) | payer MEDICAID ==
[2022-10-31 20:11] VITALS: BP 106/66; PULSE 89
[2022-10-31] MEDS ORDERED: Acetaminophen/oxyCODONE 325-5 MG Tab PO ONE (22:18)
== END 2022-10-31 23:20 | disposition home or self-care (01) ==
LOC: JD.ED 19:32
DX: G89.18 Other acute postprocedural pain (principal); M79.641 Pain in right hand; M25.531 Pain in right wrist; F17.210 Nicotine dependence, cigarettes, uncomplicated; Z88.5 Allergy status to narcotic agent; Z91.048 Other nonmedicinal substance allergy status; Z91.013 Allergy to seafood; Z88.8 Allergy status to other drugs, medicaments and biological substances; Z79.899 Other long term (current) drug therapy; Z98.890 Other specified postprocedural states
CPT/HCPCS: 99283; A9270; 99282

== ENCOUNTER 2022-12-24 17:56 | Emergency (ER) | payer MEDICAID ==
[2022-12-24] MEDS ORDERED: HYDROmorphone 1 MG/ML Syringe IM ONE (18:21)
[2022-12-24 18:49] VITALS: BP 109/88; PULSE 80
== END 2022-12-24 18:49 | disposition home or self-care (01) ==
LOC: JD.ED 17:56
DX: K04.7 Periapical abscess without sinus (principal); Z88.5 Allergy status to narcotic agent; Z91.048 Other nonmedicinal substance allergy status; Z88.8 Allergy status to other drugs, medicaments and biological substances; Z91.013 Allergy to seafood
CPT/HCPCS: 96372; 99283; J1170

== ENCOUNTER 2022-12-27 12:12 | Emergency (ER) | payer MEDICAID ==
[2022-12-27 12:25] VITALS: PULSE 84
[2022-12-27 14:04] VITALS: BP 115/73
== END 2022-12-27 14:00 | disposition home or self-care (01) ==
LOC: JD.ED 12:12
DX: K04.7 Periapical abscess without sinus (principal); F17.210 Nicotine dependence, cigarettes, uncomplicated; Z91.048 Other nonmedicinal substance allergy status; Z88.5 Allergy status to narcotic agent; Z91.013 Allergy to seafood; Z88.8 Allergy status to other drugs, medicaments and biological substances; Z79.899 Other long term (current) drug therapy; Z98.890 Other specified postprocedural states
CPT/HCPCS: 99282

== ENCOUNTER 2023-03-26 23:07 | Emergency (ER) | payer MEDICAID ==
[2023-03-27] MEDS ORDERED: Ketorolac 30 MG/ML SDV IVPUSH ONE (00:03)
[2023-03-27] MEDS ORDERED: Sodium Chloride 0.9% 1,000 ML IV ONE (00:03)
[2023-03-27] MEDS ORDERED: Prochlorperazine 10 MG/2 ML SDV IVPUSH ONE ×2 (00:03→01:15)
[2023-03-27] MEDS ORDERED: Orphenadrine 100 MG Tab.ER PO SCH (01:16)
[2023-03-27 02:16] VITALS: BP 100/65; PULSE 62
== END 2023-03-27 02:06 | disposition home or self-care (01) ==
LOC: JD.ED 23:07
DX: G44.209 Tension-type headache, unspecified, not intractable (principal); Z88.5 Allergy status to narcotic agent; Z91.048 Other nonmedicinal substance allergy status; Z91.013 Allergy to seafood; Z88.8 Allergy status to other drugs, medicaments and biological substances
CPT/HCPCS: 96361; 96374; 96375; 96376; 99283; A9270; J0780; J1885; J7030; 99282

== ENCOUNTER 2023-07-22 06:49 | Observation (INO) | payer MEDICAID ==
[~2023-07-22 06:49] MED LIST changes: -Bupivacaine 0.25% 10 ML SDV ONE; +Dexamethasone 4 MG/ML 5 ML MDV ONE; -Lidocaine 1% 10 ML MDV ONE; -Lidocaine 1%/Sod Bicarbonate in NS 8.4% 1 ML Syringe IDERM PRN; +Lidocaine 2% 5 ML SDV ONE; +Metoclopramide 10 MG/2 ML SDV ONE; +Midazolam 1 MG/ML 2 ML SDV ONE; +Propofol 200 MG/20 ML SDV ONE; +Rocuronium 50 MG/5 ML Vial ONE; -Sodium Chloride 0.9% 10 ML Syringe FLUSH SCH; +Succinylcholine 200 MG/10 ML MDV ONE; +fentaNYL 100 MCG/2 ML SDV ONE
[2023-07-22] MEDS ORDERED: ceFAZolin 2 GM Vial ONE (06:57)
[2023-07-22 07:29] LABS: BASOPHILS ABSOLUTE AUTO 0.1 K/mm3 (0.0-0.2); BASOPHILS PERCENT AUTO 0.7 % (0.0-1.0); EOSINOPHILS ABSOLUTE AUTO 0.1 K/mm3 (0.0-0.4); EOSINOPHILS PERCENT AUTO 1.2 % (0.0-6.0); HEMATOCRIT 43.1 % (37.0-47.0); HEMOGLOBIN 14.9 gm/dl (12.0-16.0); IMMATURE GRAN ABSOLUTE AUTO 0.02 K/mm3 (0.00-0.05); IMMATURE GRAN PERCENT AUTO 0.3 % (0.0-0.4); LYMPHOCYTES ABSOLUTE AUTO 3.8 K/mm3 (1.0-4.8); MEAN CORPUSCULAR HEMOGLOBIN 30.3 pg (28.0-32.0); MEAN CORPUSCULAR HGB CONC 34.6 g/dl (32.0-36.0); MEAN CORPUSCULAR VOLUME 87.6 fl (83.0-99.0); MEAN PLATELET VOLUME 10.8 fl (9.4-12.3); MONOCYTES ABSOLUTE AUTO 0.4 K/mm3 (0.0-0.8); MONOCYTES PERCENT AUTO 5.8 % (0.0-8.0); PLATELET COUNT,PLT 277 K/mm3 (150-400); RED BLOOD CELL COUNT 4.92 M/mm3 (4.10-5.30); WHITE BLOOD CELL COUNT,WBC 7.39 K/mm3 (3.9-11.3)
[2023-07-22] MEDS ORDERED: fentaNYL 100 MCG/2 ML SDV ONE ×2 (07:31→08:55)
[2023-07-22 07:39] LABS: ANION GAP 12.4 (5-15); CALCIUM 8.7 mg/dL (8.5-10.1); CREATININE 0.7 mg/dL (0.55-1.02); EST CRCL DRUG DOSING (CG) 82.23 mL/min; POTASSIUM,K 3.4 mEq/L (3.5-5.1)
[2023-07-22] MEDS ORDERED: Phenazopyridine 95 MG Tab PO ONE (07:39)
[2023-07-22] MEDS ORDERED: Lidocaine 1% 30 ML SDV ONE (07:40)
[2023-07-22] MEDS ORDERED: EPINEPHrine 1 MG/ML SDV ONE (07:40)
[2023-07-22] MEDS ORDERED: Ondansetron 4 MG/2 ML SDV IVPUSH PRN (09:04)
[2023-07-22] MEDS ORDERED: HYDROmorphone 0.5 MG/0.5 ML Syringe IVPUSH PRN (09:04)
[2023-07-22] MEDS ORDERED: Ketorolac 30 MG/ML SDV ONE (09:09)
[2023-07-22 09:17] LABS: BARBITURATE SCREEN,URINE NEGATIVE (CUTOFF=200); BENZODIAZEPINES SCREEN,URINE NEGATIVE (CUTOFF=150); BUPRENORPHINE SCREEN,URINE NEGATIVE (CUTOFF=10); METHADONE SCREEN, URINE NEGATIVE (CUTOFF=200); METHAMPHETAMINES SCREEN, URINE NEGATIVE (CUTOFF=500); OXYCODONE SCREEN,URINE NEGATIVE (CUT0FF=100); THC SCREEN,URINE 20 NG/ML PRESUMPTIVE POSITIVE (CUTOFF=50)
[2023-07-22 09:19] LABS: AMPHETAMINES SCREEN, URINE NEGATIVE (CUTOFF=500)
[2023-07-22] MEDS ORDERED: Neostigmine Methylsulfate 10 MG/10 ML MDV ONE (10:00)
[2023-07-22] MEDS: fentaNYL 100 MCG/2 ML SDV IVPUSH PRN ×2 (10:45→11:10)
[2023-07-22] MEDS ORDERED: Acetaminophen 325 MG Tab PO SCH (10:45)
[2023-07-22] MEDS ORDERED: Lactated Ringers 1,000 ML IV SCH (10:45)
[2023-07-22] MEDS: oxyCODONE 5 MG Tab PO PRN ×2 (12:43→21:01)
[2023-07-22] MEDS: Acetaminophen 325 MG Tab PO SCH ×2 (13:05→19:18)
[2023-07-22] MEDS ORDERED: Nicotine 14 MG/24 Hr Patch TRDERM SCH (13:15)
[2023-07-22] MEDS: Sodium Chloride 0.9% 10 ML Syringe FLUSH SCH (14:47)
[2023-07-22] MEDS: Ibuprofen 600 MG Tab PO SCH ×2 (16:05→22:11)
[2023-07-22] MEDS ORDERED: Docusate Sodium 100 MG Cap PO SCH (21:00)
[2023-07-23] MEDS: Acetaminophen 325 MG Tab PO SCH (01:13)
[2023-07-23] MEDS: oxyCODONE 5 MG Tab PO PRN (02:28)
[2023-07-23] MEDS: Ibuprofen 600 MG Tab PO SCH (04:26)
[2023-07-23 06:21] LABS: HEMATOCRIT 32.4 % (37.0-47.0); MEAN CORPUSCULAR HEMOGLOBIN 31.3 pg (28.0-32.0); MEAN CORPUSCULAR HGB CONC 35.5 g/dl (32.0-36.0); MEAN PLATELET VOLUME 10.6 fl (9.4-12.3); PLATELET COUNT,PLT 209 K/mm3 (150-400); RED BLOOD CELL COUNT 3.68 M/mm3 (4.10-5.30); WHITE BLOOD CELL COUNT,WBC 10.44 K/mm3 (3.9-11.3)
[2023-07-23 06:38] LABS: HEMOGLOBIN 11.5 gm/dl (12.0-16.0)
[2023-07-23 06:40] LABS: ANION GAP 9.4 (5-15); BLOOD UREA NITROGEN,BUN 4 mg/dL (7-18); CALCIUM 8.4 mg/dL (8.5-10.1); CARBON DIOXIDE,CO2 28 mEq/L (21-32); CHLORIDE,CL 103 mEq/L (98-107); CREATININE 0.5 mg/dL (0.55-1.02); ESTIMATED GFR 123 mL/min (>60); GLUCOSE RANDOM 99 mg/dL (70-99); POTASSIUM,K 3.4 mEq/L (3.5-5.1); SODIUM,NA 137 mEq/L (136-145)
[2023-07-23] MEDS ORDERED: Acetaminophen 325 MG Tab PO PRN (07:19)
[2023-07-23] MEDS ORDERED: Ibuprofen 600 MG Tab PO PRN (07:19)
[2023-07-23] MEDS ORDERED: Fluticasone NASAL Spray 16 GM Bottle NASBOTH SCH (07:30)
[2023-07-23 11:08] VITALS: BP 105/68; PULSE 78
== END 2023-07-23 08:00 | disposition home or self-care (01) ==
LOC: JD.SDS 06:49 → JD.OB 10:35 → JD.SDS 10:36 → JD.OB 10:37
PROVIDERS: ADMIT Obstetrics & Gynecology; ATTEND Obstetrics & Gynecology
DX: D25.1 Intramural leiomyoma of uterus (principal); N83.8 Other noninflammatory disorders of ovary, fallopian tube and broad ligament; N73.6 Female pelvic peritoneal adhesions (postinfective); K21.9 Gastro-esophageal reflux disease without esophagitis; F17.210 Nicotine dependence, cigarettes, uncomplicated; Z79.899 Other long term (current) drug therapy; Z91.013 Allergy to seafood
CPT/HCPCS: 36415; 58571; 80048; 80306; 85025; 85027; 86850; 86900; 86901; A9270; J0171; J0330; J0690; J1100; J1885; J2250; J2704; J2710; J2765; J3010; J7030; J7120; 00840; J3490

== ENCOUNTER 2023-11-28 19:11 | Emergency (ER) | payer SELFPAY ==
[2023-11-28] MEDS: Sodium Chloride 0.9% 1,000 ML IV ONE (20:09)
[2023-11-28 20:14] LABS: BASOPHILS PERCENT AUTO 0.3 % (0.0-1.0); EOSINOPHILS ABSOLUTE AUTO 0.1 K/mm3 (0.0-0.4); EOSINOPHILS PERCENT AUTO 0.9 % (0.0-6.0); HEMOGLOBIN 15.1 gm/dl (12.0-16.0); IMMATURE GRAN ABSOLUTE AUTO 0.01 K/mm3 (0.00-0.05); IMMATURE GRAN PERCENT AUTO 0.2 % (0.0-0.4); LYMPHOCYTES ABSOLUTE AUTO 2.8 K/mm3 (1.0-4.8); LYMPHOCYTES PERCENT AUTO 42.2 % (24.0-44.0); MEAN CORPUSCULAR HEMOGLOBIN 30.1 pg (28.0-32.0); MEAN CORPUSCULAR HGB CONC 35.1 g/dl (32.0-36.0); MEAN CORPUSCULAR VOLUME 85.8 fl (83.0-99.0); MEAN PLATELET VOLUME 10.3 fl (9.4-12.3); MONOCYTES ABSOLUTE AUTO 0.3 K/mm3 (0.0-0.8); MONOCYTES PERCENT AUTO 4.1 % (0.0-8.0); NEUTROPHILS ABSOLUTE AUTO 3.5 K/mm3 (1.8-7.7); NEUTROPHILS PERCENT AUTO 52.3 % (41.0-71.0); PLATELET COUNT,PLT 247 K/mm3 (150-400); RED BLOOD CELL COUNT 5.01 M/mm3 (4.10-5.30); WHITE BLOOD CELL COUNT,WBC 6.64 K/mm3 (3.9-11.3)
[2023-11-28] MEDS: Metoclopramide 10 MG/2 ML SDV IVPUSH ONE (20:31)
[2023-11-28] MEDS: Ketorolac 15 MG/ML SDV IVPUSH ONE (20:33)
[2023-11-28 20:40] LABS: A/G RATIO 1.1 (1-2); ALBUMIN 3.5 g/dl (3.4-5.0); BILIRUBIN TOTAL 0.4 mg/dL (0.2-1.0); BUN/CREATININE RATIO 11.4 (14-18); CALCIUM 8.4 mg/dL (8.5-10.1); CREATININE 0.7 mg/dL (0.55-1.02); EST CRCL DRUG DOSING (CG) 78.27 mL/min; PROTEIN TOTAL,TP 6.6 g/dl (6.4-8.2)
[2023-11-28 22:12] VITALS: BP 104/68; PULSE 84
== END 2023-11-28 22:07 | disposition home or self-care (01) ==
LOC: JD.ED 19:11
DX: G43.009 Migraine without aura, not intractable, without status migrainosus (principal); F17.210 Nicotine dependence, cigarettes, uncomplicated; Z79.1 Long term (current) use of non-steroidal anti-inflammatories (NSAID); Z79.891 Long term (current) use of opiate analgesic; Z86.16 Personal history of COVID-19; Z90.49 Acquired absence of other specified parts of digestive tract; Z88.5 Allergy status to narcotic agent; Z91.048 Other nonmedicinal substance allergy status; Z91.013 Allergy to seafood; Z88.8 Allergy status to other drugs, medicaments and biological substances
CPT/HCPCS: 36415; 80053; 84703; 85025; 96361; 96374; 96375; 99283; J1885; J2765; J7030

== ENCOUNTER 2023-12-20 17:00 | Emergency (ER) | payer SELFPAY ==
[2023-12-20 17:13] VITALS: BP 133/99; PULSE 110
[2023-12-20] MEDS: Amoxicillin/Clavulanate K 875-125 MG Tab PO ONE (18:34)
== END 2023-12-20 20:40 | disposition home or self-care (01) ==
LOC: JD.ED 17:00
DX: K02.9 Dental caries, unspecified (principal); K04.7 Periapical abscess without sinus; F17.210 Nicotine dependence, cigarettes, uncomplicated; Z88.5 Allergy status to narcotic agent; Z91.013 Allergy to seafood; Z88.8 Allergy status to other drugs, medicaments and biological substances; Z79.899 Other long term (current) drug therapy; Z90.49 Acquired absence of other specified parts of digestive tract
CPT/HCPCS: 99282; A9270

== ENCOUNTER 2024-02-10 18:46 | Emergency (ER) | payer MEDICAID ==
[2024-02-10 19:16] VITALS: BP 122/64; PULSE 89
[2024-02-10] MEDS: Sodium Chloride 0.9% 1,000 ML IV ONE (20:13)
[2024-02-10] MEDS: Metoclopramide 10 MG/2 ML SDV IVPUSH ONE (20:14)
[2024-02-10] MEDS: Ketorolac 15 MG/ML SDV IVPUSH ONE (20:16)
[2024-02-10] MEDS: diphenhydrAMINE 50 MG/ML SDV IVPUSH ONE (20:17)
[2024-02-10] MEDS: Sodium Chloride 0.9% 10 ML Syringe FLUSH PRN (20:17)
[2024-02-10 20:18] LABS: BASOPHILS PERCENT AUTO 0.6 % (0.0-1.0); EOSINOPHILS ABSOLUTE AUTO 0.1 K/mm3 (0.0-0.4); EOSINOPHILS PERCENT AUTO 1.2 % (0.0-6.0); HEMATOCRIT 41.8 % (37.0-47.0); HEMOGLOBIN 14.4 gm/dl (12.0-16.0); IMMATURE GRAN ABSOLUTE AUTO 0.02 K/mm3 (0.00-0.05); IMMATURE GRAN PERCENT AUTO 0.3 % (0.0-0.4); LYMPHOCYTES PERCENT AUTO 44.6 % (24.0-44.0); MEAN CORPUSCULAR HEMOGLOBIN 29.9 pg (28.0-32.0); MEAN CORPUSCULAR HGB CONC 34.4 g/dl (32.0-36.0); MEAN CORPUSCULAR VOLUME 86.7 fl (83.0-99.0); MEAN PLATELET VOLUME 10.6 fl (9.4-12.3); MONOCYTES ABSOLUTE AUTO 0.2 K/mm3 (0.0-0.8); MONOCYTES PERCENT AUTO 3.5 % (0.0-8.0); NEUTROPHILS ABSOLUTE AUTO 3.3 K/mm3 (1.8-7.7); NEUTROPHILS PERCENT AUTO 49.8 % (41.0-71.0); PLATELET COUNT,PLT 303 K/mm3 (150-400); RED BLOOD CELL COUNT 4.82 M/mm3 (4.10-5.30); WHITE BLOOD CELL COUNT,WBC 6.64 K/mm3 (3.9-11.3)
[2024-02-10 20:30] LABS: A/G RATIO 1.2 (1-2); ALBUMIN 3.6 g/dl (3.4-5.0); ANION GAP 12.7 (5-15); BILIRUBIN TOTAL 0.3 mg/dL (0.2-1.0); BUN/CREATININE RATIO 13.3 (14-18); CALCIUM 8.8 mg/dL (8.5-10.1); CREATININE 0.6 mg/dL (0.55-1.02); EST CRCL DRUG DOSING (CG) 91.32 mL/min; POTASSIUM,K 3.7 mEq/L (3.5-5.1); PROTEIN TOTAL,TP 6.7 g/dl (6.4-8.2)
== END 2024-02-10 21:50 | disposition home or self-care (01) ==
LOC: JD.ED 18:46
DX: R51.9 Headache, unspecified (principal); Z88.5 Allergy status to narcotic agent; Z91.013 Allergy to seafood; Z88.6 Allergy status to analgesic agent; Z91.048 Other nonmedicinal substance allergy status; Z79.899 Other long term (current) drug therapy
CPT/HCPCS: 36415; 80053; 84703; 85025; 96361; 96374; 96375; 99284; J1200; J1885; J2765; J3490; J7030; 99283

== ENCOUNTER 2024-08-26 19:44 | Emergency (ER) | payer MEDICAID ==
[2024-08-26 19:53] VITALS: BP 121/68
[2024-08-26] MEDS: Acetaminophen/oxyCODONE 325-5 MG Tab PO ONE (20:31)
[2024-08-26 20:58] VITALS: PULSE 80
== END 2024-08-26 20:58 | disposition home or self-care (01) ==
LOC: JD.ED 19:44
DX: S02.5XXA Fracture of tooth (traumatic), initial encounter for closed fracture (principal); Z79.899 Other long term (current) drug therapy; Z88.5 Allergy status to narcotic agent; Z91.013 Allergy to seafood; Z88.6 Allergy status to analgesic agent; Z91.048 Other nonmedicinal substance allergy status; W19.XXXA Unspecified fall, initial encounter
CPT/HCPCS: 99282; A9270

== ENCOUNTER 2024-12-12 10:33 | Emergency (ER) | payer MEDICAID ==
[2024-12-12 11:16] LABS: BASOPHILS ABSOLUTE AUTO 0.1 K/mm3 (0.0-0.2); BASOPHILS PERCENT AUTO 0.6 % (0.0-1.0); EOSINOPHILS ABSOLUTE AUTO 0.1 K/mm3 (0.0-0.4); EOSINOPHILS PERCENT AUTO 1.1 % (0.0-6.0); HEMATOCRIT 48.5 % (37.0-47.0); IMMATURE GRAN ABSOLUTE AUTO 0.01 K/mm3 (0.00-0.05); IMMATURE GRAN PERCENT AUTO 0.1 % (0.0-0.4); LYMPHOCYTES ABSOLUTE AUTO 3.9 K/mm3 (1.0-4.8); LYMPHOCYTES PERCENT AUTO 43.4 % (24.0-44.0); MEAN CORPUSCULAR HEMOGLOBIN 30.6 pg (28.0-32.0); MEAN CORPUSCULAR HGB CONC 34.6 g/dl (32.0-36.0); MEAN CORPUSCULAR VOLUME 88.3 fl (83.0-99.0); MEAN PLATELET VOLUME 10.6 fl (9.4-12.3); MONOCYTES ABSOLUTE AUTO 0.5 K/mm3 (0.0-0.8); NEUTROPHILS ABSOLUTE AUTO 4.5 K/mm3 (1.8-7.7); NEUTROPHILS PERCENT AUTO 49.8 % (41.0-71.0); PLATELET COUNT,PLT 271 K/mm3 (150-400); RED BLOOD CELL COUNT 5.49 M/mm3 (4.10-5.30); WHITE BLOOD CELL COUNT,WBC 9.01 K/mm3 (3.9-11.3)
[2024-12-12 11:24] LABS: HEMOGLOBIN 16.8 gm/dl (12.0-16.0)
[2024-12-12] MEDS: Ondansetron 4 MG/2 ML SDV IVPUSH ONE (11:42)
[2024-12-12] MEDS: Sodium Chloride 0.9% 1,000 ML IV STA (11:42)
[2024-12-12 11:43] LABS: A/G RATIO 1.1 (1-2); ALANINE AMINOTRANSFERASE,ALT 14 U/L (14-59); ALBUMIN 4.1 g/dl (3.4-5.0); ALKALINE PHOSPHATASE 56 U/L (46-116); ANION GAP 15.5 (5-15); ASPARTATE AMNIOTRANSFERASE,AST 12 U/L (15-37); BILIRUBIN TOTAL 1.1 mg/dL (0.2-1.0); BLOOD UREA NITROGEN,BUN 6 mg/dL (7-18); CALCIUM 9.1 mg/dL (8.5-10.1); CARBON DIOXIDE,CO2 27 mEq/L (21-32); CHLORIDE,CL 101 mEq/L (98-107); CREATININE 0.6 mg/dL (0.55-1.02); ESTIMATED GFR 117 mL/min (>60); GLUCOSE RANDOM 91 mg/dL (70-99); LIPASE 43 U/L (16-77); POTASSIUM,K 3.5 mEq/L (3.5-5.1); PROTEIN TOTAL,TP 7.8 g/dl (6.4-8.2); SODIUM,NA 140 mEq/L (136-145)
[2024-12-12] MEDS: HYDROmorphone 0.5 MG/0.5 ML Syringe IVPUSH ONE (11:44)
[2024-12-12] MEDS: Sodium Chloride 0.9% 10 ML Syringe FLUSH PRN (11:46)
[2024-12-12] MEDS: Iopamidol 612 MG/ML 100 ML Bottle IVPUSH ONE (12:06)
[2024-12-12 12:32] LABS: APPEARANCE,URINE CLEAR (Clear); BILIRUBIN,URINE NEGATIVE (Negative); COLOR,URINE YELLOW (Yellow); GLUCOSE,URINE NEGATIVE (Negative); KETONES,URINE NEGATIVE (Negative); LEUKOCYTE ESTERASE,URINE NEGATIVE (Negative); NITRITE,URINE NEGATIVE (Negative); OCCULT BLOOD,URINE NEGATIVE (Negative); PROTEIN,URINE NEGATIVE (Negative); UROBILINOGEN,URINE 0.2 (0.2-1.0)
[2024-12-12 12:45] LABS: BACTERIA,URINE FEW /hpf (FEW); EPITHELIAL CELLS,URINE 0-5 /hpf (0-5); MUCUS,URINE FEW /hpf (FEW); RBC,URINE 0-5 /hpf (0-5); WBC,URINE 0-5 /hpf (0-5)
[2024-12-12] MEDS: Sodium Chloride 0.9% 10 ML Syringe FLUSH SCH (13:19)
[2024-12-12 13:36] VITALS: BP 108/53; PULSE 90
== END 2024-12-12 13:25 | disposition home or self-care (01) ==
LOC: JD.ED 10:33
DX: K52.9 Noninfective gastroenteritis and colitis, unspecified (principal); F17.200 Nicotine dependence, unspecified, uncomplicated; Z88.5 Allergy status to narcotic agent; Z91.013 Allergy to seafood; Z88.8 Allergy status to other drugs, medicaments and biological substances; Z79.899 Other long term (current) drug therapy; Z90.49 Acquired absence of other specified parts of digestive tract
CPT/HCPCS: 36415; 74177; 80053; 81001; 83690; 84703; 85025; 96361; 96374; 96375; 99284; J2405; J7030; Q9967